=== PATIENT | female | born 1960 | race Caucasian/White ===

== ENCOUNTER → 2018-02-27 14:30 | Outpatient (CLI) | payer OTHER, SELFPAY | PROVIDERS: Family Provider Family Medicine; PCP Family Medicine; Visit Provider Obstetrics & Gynecology | DX: Z12.11 Encounter for screening for malignant neoplasm of colon (principal) | CPT/HCPCS: 82274 ==

== ENCOUNTER → 2018-05-04 23:00 | Outpatient (CLI) | payer OTHER, SELFPAY | PROVIDERS: Family Provider Family Medicine; PCP Family Medicine; Visit Provider Internal Medicine Pulmonary Disease | DX: G47.33 Obstructive sleep apnea (adult) (pediatric) (principal) | CPT/HCPCS: 95811 ==

== ENCOUNTER → 2019-01-19 23:27 | Outpatient (CLI) | payer OTHER, SELFPAY | PROVIDERS: Family Provider Family Medicine; PCP Family Medicine; Referring Provider Internal Medicine Pulmonary Disease; Visit Provider Internal Medicine Pulmonary Disease | DX: G47.33 Obstructive sleep apnea (adult) (pediatric) (principal) | CPT/HCPCS: 95811 ==

== ENCOUNTER → 2019-04-03 08:55 | Outpatient (CLI) | payer OTHER, SELFPAY ==
[2019-04-03 10:08] LABS: Absolute Lymphocyte Count 1.23 X10^3/uL (0.83-4.51); Absolute Neutrophil Count 1.9 X10^3/uL (2.0-7.7); Basophil# 0.03 X10^3/uL; Basophil% 0.9 % (0-1); Eosinophil# 0.07 X10^3/uL; Hematocrit 42.2 % (37-47); Hemoglobin 13.7 g/dL (12.0-15.0); Lymphocyte # 1.23 X10^3/ul (4.0); Lymphocyte % 35.1 % (19-41); Mean Corp Hgb Conc 32.5 g/dL (32-36); Mean Corpuscular Hgb 29.1 pg (27.0-32.0); Mean Corpuscular Volume 89.6 fL (81-99); Mean Platelet Vol. 8.8 fl (6.2-12.0); Monocyte# 0.25 X10^3/uL; Monocyte% 7.1 % (0-10); NRBC Flagged by Analyzer 0 % (0-5); Neutrophil # 1.91 X10^3/uL (2.7-7.7); Neutrophil % 54.6 % (47-70); Platelet Count 243 K/mm3 (150-450); RBC Distribution Width CV 12.4 % (11.6-14.6); RBC Distribution Width SD 40.5 fl (35.1-43.9); Red Blood Count 4.71 M/mm3 (4.2-5.4); White Blood Count 3.5 K/mm3 (4.4-11.0)
[2019-04-03 10:40] LABS: Vitamin B12 574 pg/mL (211-911); Vitamin D,25 Hydroxy 42.3 ng/mL (29.95-100.01)
[2019-04-03 10:44] LABS: ALB/GLOB Ratio 1.1 RATIO (0.9-2.4); AST(SGOT) 24 U/L (15-37); Alanine Aminotransfer ALT/SGPT 28 U/L (13-56); Albumin, Serum 3.8 g/dL (3.2-5.0); Alkaline Phosphatase 80 U/L (45-117); Anion Gap 6 (5-15); BUN 16 mg/dL (7-18); BUN/Creat Ratio 21.6 RATIO (10-20); Calcium,Total 8.9 mg/dL (8.5-10.1); Chloride 108 mmol/L (98-107); Cholesterol 182 mg/dL (200); Creatinine, Serum 0.74 mg/dL (0.55-1.02); EST Glomerular Filtration Rate 85 mL/min (>60); Est Glom Filt Rate - Afr Amer 103 mL/min (>60); Ferritin 20 ng/mL (8-252); Globulin 3.4 g/dL (2.2-4.2); Glucose 90 mg/dL (74-106); High Density Lipoprotein 68 mg/dL; Iron 105 ug/dL (50-170); Iron Binding Capacity,Total 372 ug/dL (250-450); PERCENT IRON SATURATION 28.2 % (15.0-55.0); Potassium 3.6 mmol/L (3.5-5.1); Protein, Total 7.2 g/dL (6.4-8.2); Sodium Level 145 mmol/L (136-145); Thyroid Stim Hormone (TSH) 1.39 uIU/mL (0.358-3.74); Triglycerides 50 mg/dL; Very Low Density Lipoprotein 10 mg/dL (5-40)
[2019-04-10 12:30] LABS: Vitamin B1, Thiamine 123.7 nmol/L (66.5-200.0)
== END ==
PROVIDERS: Family Provider Family Medicine; PCP Family Medicine
DX: Z98.84 Bariatric surgery status (principal); M25.571 Pain in right ankle and joints of right foot; M25.552 Pain in left hip; M25.551 Pain in right hip; E66.3 Overweight; G47.30 Sleep apnea, unspecified; I10 Essential (primary) hypertension
CPT/HCPCS: 36415; 80053; 80061; 82306; 82607; 82728; 83540; 83550; 84425; 84443; 85025

== ENCOUNTER 2020-02-01 23:08 | Emergency (ER) | payer OTHER, SELFPAY ==
[2019-10-05 12:32] VITALS: BMI 29.4
[2020-02-01 23:09] VITALS: BP 155/89; PULSE 84; RESP 18; TEMP 36.7; O2SAT 98; BMI 30.9
--- NOTE | 2020-02-01 23:19 | ED.RN ---
NO OLD EKGS IN MUSE
--- NOTE | 2020-02-01 23:25 | RAD_ITS ---
STUDY: X-RAY CHEST REASON FOR EXAM: Female, 59 years old. Chest pain to right shoulder. TECHNIQUE: Single frontal view of the chest. COMPARISON: None. FINDINGS: The lungs are clear and expanded. There is no demonstrated pleural abnormality. Normal size heart. Normal mediastinum and allison. Normal visualized pulmonary arteries. Normal visualized aortic arch and descending thoracic aorta. Normal visualized thoracic spine. Normal visualized ribs, clavicles, and shoulders. There is no demonstrated abnormality of the visualized soft tissue structures of the upper abdomen. RAD/Chest 1 View (Portable) IMPRESSION: Normal x-ray examination of the chest. Electronically Signed: Facundo Fierro MD at 0:12 EDT Tel , Service support ,
--- NOTE | 2020-02-01 23:25 | EKG12_ITS ---
Test Reason : CHEST PAIN Blood Pressure : / mmHG Vent. Rate : 083 BPM Atrial Rate : 083 BPM P-R Int : 156 ms QRS Dur : 086 ms QT Int : 364 ms P-R-T Axes : 052 044 026 degrees QTc Int : 427 ms Normal sinus rhythm Normal ECG Confirmed by FELIZ MILLER, RAFIA ([id number]), script editor TANNER MENDEZ ([id number]) on 02/05/2020 8:16:12 AM Referred By: LAURA Confirmed By:RAFIA PIPER MD
--- NOTE | 2020-02-01 23:27 | ED.RN ---
NO OLD EKGS IN MUSE
[2020-02-01 23:33] VITALS: PULSE 82; RESP 14; O2SAT 98
[2020-02-01 23:39] LABS: Absolute Lymphocyte Count 1.48 X10^3/uL (0.83-4.51); Absolute Neutrophil Count 5.3 X10^3/uL (2.0-7.7); Basophil# 0.02 X10^3/uL; Basophil% 0.3 % (0-1); Eosinophil# 0.07 X10^3/uL; Eosinophils% 0.9 % (0-5); Hematocrit 38.5 % (37-47); Hemoglobin 12.6 g/dL (12.0-15.0); Lymphocyte # 1.48 X10^3/ul (4.0); Lymphocyte % 19.8 % (19-41); Mean Corp Hgb Conc 32.7 g/dL (32-36); Mean Corpuscular Hgb 29.6 pg (27.0-32.0); Mean Corpuscular Volume 90.6 fL (81-99); Mean Platelet Vol. 8.7 fl (6.2-12.0); Monocyte# 0.64 X10^3/uL; Monocyte% 8.5 % (0-10); NRBC Flagged by Analyzer 0 % (0-5); Neutrophil # 5.27 X10^3/uL (2.7-7.7); Neutrophil % 70.4 % (47-70); Platelet Count 231 K/mm3 (150-450); RBC Distribution Width CV 12.7 % (11.6-14.6); Red Blood Count 4.25 M/mm3 (4.2-5.4); White Blood Count 7.5 K/mm3 (4.4-11.0)
[2020-02-01 23:56] LABS: Anion Gap 5 (5-15); BUN 21 mg/dL (7-18); BUN/Creat Ratio 30.9 RATIO (10-20); Calcium,Total 8.8 mg/dL (8.5-10.1); Chloride 104 mmol/L (98-107); Creatinine, Serum 0.68 mg/dL (0.55-1.02); EST Glomerular Filtration Rate 94 mL/min (>60); Est Glom Filt Rate - Afr Amer 114 mL/min (>60); Estimated Creatinine Clearance 83.39 ml/min; Glucose 99 mg/dL (74-106); Potassium 3.3 mmol/L (3.5-5.1); Sodium Level 140 mmol/L (136-145)
[2020-02-02 00:04] LABS: D-Dimer Quantitative (DVT/PE) <= 0.27 FEU/ug/m (0.27-0.49)
--- NOTE | 2020-02-02 00:20 | ED.DCSUM_ITS ---
History of Present Illness Chief Complaint: Chest Pain Informant: Patient Onset: Yesterday Narrative: 9-year-old female with past medical history of hypertension presents with concern for right chest pain. States this began last night at approximate 10 PM which is now 24 hours ago. States that it began while she was at rest. States is been intermittent since that time but only whenever she moves her right side. Denies any trauma or fall. Denies any fever, chills, cough. States that she did take aspirin last night and got nauseous. Denies any coronary artery disease. Past Medical History - Allergies and Home Meds Allergies/Adverse Reactions: Allergies No Known Allergies Allergy (Unverified 10/05/19 12:32) Primary Care Physician: Trudy Richards MD [Primary Care Provider] - Prior records reviewed: Yes Past Medical History: - - HTN Surgical History: noncontributory Lives: Spouse/ Significant Other Smoking Status: Never smoker Alcohol: None Drugs: None Review of Systems General: Denies: Chills, Fever, Sweats Eyes: Denies: Visual changes - bilaterally, Diplopia ENT: Denies: Rhinorrhea, Sore throat Cardiovascular: Reports: Chest pain. Denies: Palpitations Respiratory: Denies: Dyspnea, Cough, Dyspnea on exertion Gastrointestinal: Denies: Abdominal pain, Nausea, Vomiting, Diarrhea, Melena, Hematochezia Genitourinary: Denies: Dysuria, Hematuria, Frequency Musculoskeletal: Denies: Back pain, Extremity Pain Skin: Denies: Rash, Wounds Neurological: Denies: Headache, Weakness, Numbness Physical Exam Vital Signs/Narrative: Vital Signs Temp Pulse Resp BP Pulse Ox 02/01/20 23:33 82 14 98 02/01/20 23:09 98.1 F 84 18 155/89 H 98 Inital Vital Signs reviewed: Yes General: Well nourished, Well developed, No Acute Distress Head: Normocephalic, Atraumatic Eyes: Perrl, EOMI ENT: Moist mucous membranes, No rhinorrhea Neck: Supple, Nontender Cardiovascular: Regular rate, Regular rhythm, No murmurs Respiratory: No distress, CTA bilaterally, Chest nontender Abdomen: Soft, Nontender, Nondistended, Normal bowel sounds Back: Nontender, Normal Inspection Extremities: Nontender, No edema Skin: Normal color, No rash Neurological: Alert, Oriented x3, Cranial nerves II-XII grossly intact, Normal Strength, Normal Sensation Psychological: Normal affect, Normal Mood Diagnostic/Tx/Re-eval Chest X-Ray - ED: 1 View, Read by ED Physician, Normal Clinical Impression(s) from Imaging Studies Chest X-Ray 02/01/20 23:25 IMPRESSION: Normal x-ray examination of the chest. Electronically Signed: Facundo Fierro MD at 0:12 EDT Tel , Service support , Laboratory Data 02/01/20 02/01/20 02/01/20 23:30 23:30 23:30 WBC 7.5 RBC 4.25 Hgb 12.6 Hct 38.5 MCV 90.6 MCH 29.6 MCHC 32.7 RDW Std Deviation 41.0 RDW Coeff of Elly 12.7 Plt Count 231 MPV 8.7 Immature Gran % (Auto) 0.100 Neut % (Auto) 70.4 H Lymph % (Auto) 19.8 Clarion % (Auto) 8.5 Eos % (Auto) 0.9 Baso % (Auto) 0.3 Absolute Neuts (auto) 5.3 Absolute Lymphs (auto) 1.48 Nucleated RBC % 0 D-Dimer Quant (PE/DVT) <= 0.27 Sodium 140 Potassium 3.3 L Chloride 104 Carbon Dioxide 31.0 Anion Gap 5 BUN 21 H Creatinine 0.68 Estim Creat Clear Calc 83.39 Est GFR (MDRD) Af Amer 114 Est GFR (MDRD) Non-Af 94 BUN/Creatinine Ratio 30.9 H Glucose 99 Calcium 8.8 Troponin I < 0.015 - Rhythm Strip Rhythm Strip: Sinus Rhythm Rate: 83 Ectopy: None - EKG Initial EKG Interpretation: Sinus Rhythm - Normal sinus rhythm at 83 bpm. MA interval of 156 ms. QTC of 427 ms. No evidence of ST elevation or depression at this time. - Medical Decision Making Patient appears well nontoxic. Vital signs within normal limits. Atypical chest pain. Chest x-ray negative. EKG nonischemic with a negative troponin as well as d-dimer. Given the patient's pain is atypical in nature and worse with movement. Single troponin given is been over the course the past 24 hours should effectively rule her out for ACS. Patient is low risk with only hypertension as a risk factor as well as an age of 59. Patient will be asked to follow-up with her primary care provider and return for any new or worsening symptoms. ED Disposition - Plan for ED Patient: Disposition: Home or Assisted Living Diagnosis: Chest pain Instructions: ED Chest Pain Atypical Unkn Cause Referrals: Trudy Richards MD [Primary Care Provider] -
[2020-02-02] MEDS: Ketorolac 15 MG/ML Vial IV (00:44)
[2020-02-02 01:00] VITALS: BP 122/71; PULSE 76; RESP 16; O2SAT 98
== END 2020-02-02 01:05 | disposition home or self-care (01) ==
PROVIDERS: Emergency Provider Emergency Medicine; PCP Internal Medicine
DX: R07.89 Other chest pain (principal); I10 Essential (primary) hypertension
CPT/HCPCS: 71045; 80048; 84484; 85025; 85379; 93005; 96374; 99285; A4216

== ENCOUNTER → 2020-07-23 09:10 | Outpatient (CLI) | payer OTHER, SELFPAY ==
[2020-07-23 08:37] VITALS: BMI 30.3
[2020-07-23 09:12] LABS: Mucous, Urine 0 SEEN /hpf (<or=2+)
[2020-07-23 12:21] LABS: Color, Urine Yellow (Yellow); Glucose, Dipstick Normal (Normal); Ketone-Dipstick Negative (Negative); Leukocyte Esterase-Dipstick 100 /ul (Negative); Nitrite-Dipstick Negative (Negative); Occult Blood-Urine 250 /ul (Negative); Protein-Dipstick 15 mg/dl (Negative); Specific Gravity, Urine 1.015 (1.002-1.030); Urine Bilirubin Dipstick Negative (Negative); Urine Clarity Cloudy (Clear); Urine Urobilinogen 1 mg/dl (Normal)
[2020-07-23 12:30] LABS: Bacteria RARE /hpf (None Seen); Red Blood Cells-Urine 50-100 SEEN /hpf (0-5); Squamous Epithelial Cells - UA 0-5 SEEN /hpf (5-10); White Blood Cells 0-5 SEEN /hpf (0-5)
[2020-07-23 12:41] LABS: Vitamin B12 395 pg/mL (211-911); Vitamin D,25 Hydroxy 52.8 ng/mL
[2020-07-23 12:51] LABS: Thyroid Stim Hormone (TSH) 1.72 uIU/mL (0.358-3.74)
== END ==
PROVIDERS: Internal Medicine; PCP Internal Medicine; Referring Provider Nurse Practitioner Family; Visit Provider Nurse Practitioner Family
DX: I10 Essential (primary) hypertension (principal); E56.9 Vitamin deficiency, unspecified; R31.9 Hematuria, unspecified
CPT/HCPCS: 36415; 81001; 82306; 82607; 84443

== ENCOUNTER → 2020-07-24 12:48 | Outpatient (CLI) | payer OTHER, SELFPAY ==
[2020-07-23 08:37] VITALS: BMI 30.3
--- NOTE | 2020-07-24 12:51 | US_ITS ---
STUDY: RENAL ULTRASOUND - COMPLETE REASON FOR EXAM: Female, 59 years old. INTERMITTENT HEMATURIA TECHNIQUE: Ultrasound evaluation of the kidneys was performed with real-time and static sorenson-scale imaging. COMPARISON: None. FINDINGS: RIGHT KIDNEY: Normal location of the right kidney, which is normal in size. The right kidney measures 9.7 cm. There is a normal cortex of the right kidney. The renal cortex measures 1.3 cm. There is no right renal mass or cyst. There are no right renal calculi. There is no right hydronephrosis. DISTAL RIGHT URETER: There is non-visualization of the distal right ureter. There is no demonstrated right ureterovesical junction calculus. There is a visualized right ureteral jet. LEFT KIDNEY: Normal location of the left kidney, which is normal in size. The left kidney measures 10.0 cm. There is a normal cortex of the left kidney. The renal cortex measures 1.3 cm. There is no left renal mass or cyst. There are no left renal calculi. There is no left hydronephrosis. DISTAL LEFT URETER: There is non-visualization of the distal left ureter. There is no demonstrated left ureterovesical junction calculus. There is a visualized left ureteral jet. BLADDER: The distended urinary bladder has a volume of 121 ml. The empty urinary bladder has a volume of ml. There is a normal wall thickness of the distended urinary bladder. There is no demonstrated mass within the urinary bladder. There are no demonstrated bladder calculi. US/Kidney and Bladder IMPRESSION: Normal ultrasound of the kidneys and urinary bladder. Electronically Signed: Hang Wei MD at 15:12 EST Tel , Service support ,
== END ==
PROVIDERS: PCP Internal Medicine; Referring Provider Internal Medicine; Visit Provider Internal Medicine
DX: R31.9 Hematuria, unspecified (principal)
CPT/HCPCS: 76770

== ENCOUNTER → 2020-08-14 06:09 | Outpatient (CLI) | payer OTHER, SELFPAY ==
[2020-07-23 08:37] VITALS: BMI 30.3
[2020-08-14 06:13] LABS: Bacteria 0 SEEN /hpf (None Seen); Mucous, Urine 0 SEEN /hpf (<or=2+)
[2020-08-14 07:53] LABS: Color, Urine Yellow (Yellow); Glucose, Dipstick Normal (Normal); Ketone-Dipstick Negative (Negative); Leukocyte Esterase-Dipstick 25 /ul (Negative); Nitrite-Dipstick Negative (Negative); Occult Blood-Urine 25 /ul (Negative); Protein-Dipstick 15 mg/dl (Negative); Specific Gravity, Urine 1.025 (1.002-1.030); Urine Bilirubin Dipstick Negative (Negative); Urine Clarity Sl. Cloudy (Clear); Urine Urobilinogen Normal (Normal)
[2020-08-14 08:34] LABS: Red Blood Cells-Urine 25-50 SEEN /hpf (0-5)
[2020-08-14 08:35] LABS: Calcium Oxalate Crystals Ur 1+ /hpf (<or=2+); Squamous Epithelial Cells - UA 0-5 SEEN /hpf (5-10); White Blood Cells 0-5 SEEN /hpf (0-5)
[2020-08-14 12:40] LABS: ALB/GLOB Ratio 1.1 RATIO (0.9-2.4); AST(SGOT) 13 U/L (15-37); Alanine Aminotransfer ALT/SGPT 18 U/L (13-56); Albumin, Serum 3.6 g/dL (3.2-5.0); Alkaline Phosphatase 72 U/L (45-117); Anion Gap 4 (5-15); BUN 13 mg/dL (7-18); BUN/Creat Ratio 15.5 RATIO (10-20); Calcium,Total 8.8 mg/dL (8.5-10.1); Chloride 109 mmol/L (98-107); Creatinine, Serum 0.84 mg/dL (0.55-1.02); EST Glomerular Filtration Rate 74 mL/min (>60); Erythrocyte Sedimentation Rate 5 mm/hr (0-30); Est Glom Filt Rate - Afr Amer 89 mL/min (>60); Globulin 3.2 g/dL (2.2-4.2); Glucose 88 mg/dL (74-106); Potassium 3.2 mmol/L (3.5-5.1); Protein, Total 6.8 g/dL (6.4-8.2); Sodium Level 141 mmol/L (136-145)
[2020-08-14 12:47] LABS: Absolute Lymphocyte Count 1.39 X10^3/uL (0.83-4.51); Basophil# 0.02 X10^3/uL; Basophil% 0.5 % (0-1); Eosinophil# 0.09 X10^3/uL; Eosinophils% 2.4 % (0-5); Hematocrit 37.2 % (37-47); Hemoglobin 12.5 g/dL (12.0-15.0); Lymphocyte # 1.39 X10^3/ul (4.0); Lymphocyte % 37.3 % (19-41); Mean Corp Hgb Conc 33.6 g/dL (32-36); Mean Corpuscular Hgb 29.5 pg (27.0-32.0); Mean Corpuscular Volume 87.7 fL (81-99); Mean Platelet Vol. 9.2 fl (6.2-12.0); Monocyte# 0.24 X10^3/uL; Monocyte% 6.4 % (0-10); NRBC Flagged by Analyzer 0 % (0-5); Neutrophil # 1.98 X10^3/uL (2.7-7.7); Neutrophil % 53.1 % (47-70); Platelet Count 337 K/mm3 (150-450); RBC Distribution Width CV 12.3 % (11.6-14.6); RBC Distribution Width SD 39.4 fl (35.1-43.9); Red Blood Count 4.24 M/mm3 (4.2-5.4); White Blood Count 3.7 K/mm3 (4.4-11.0)
== END ==
PROVIDERS: PCP Internal Medicine; Referring Provider Internal Medicine; Visit Provider Internal Medicine
DX: R31.9 Hematuria, unspecified (principal)
CPT/HCPCS: 36415; 80053; 81001; 85025; 85652

== ENCOUNTER → 2020-08-15 14:22 | Outpatient (CLI) | payer OTHER, SELFPAY ==
[2020-08-14 08:17] VITALS: BMI 29.8
--- NOTE | 2020-08-15 14:23 | CT_ITS ---
STUDY: CT ABDOMEN AND PELVIS WITH CONTRAST REASON FOR EXAM: Female, 59 years old. ABD PAIN/HEMATURIA, RECURRENT. Delays included. Hx of gastric sleeve and HTN-rx controlled. RADIATION DOSAGE (If Supplied By Facility): CTDIvol = ( 13.25 ) mGy, DLP = ( 1509.45 ) mGycm TECHNIQUE: Transaxial images were obtained from the dome of the diaphragm to the symphysis pubis with oral contrast. Oral and amp; IV READII-CAT and amp; 100ML ISOVUE 300 was administered. Sagittal and coronal images were reconstructed. Individualized dose optimization techniques were used for this CT. COMPARISON: None. FINDINGS: The visualized lung bases are unremarkable. The visualized portions of the heart are within normal limits. There is a 1.1 cm cyst in the dome of the right lobe of the liver. Normal gallbladder and extrahepatic biliary system. Normal spleen. Normal pancreas. Normal bilateral adrenal glands. Normal right kidney. Normal left kidney. The patient is status post subtotal gastrectomy. Small hiatal hernia. Normal small intestine. There are scattered colonic diverticula consistent with diverticulosis. The appendix is visualized and appears normal. Normal abdominal aorta. Normal inferior vena cava. Normal retroperitoneum. Normal urinary bladder. Normal abdominal wall. There are mild degenerative changes of the visualized lumbar spine. CT/Abdomen/Pelvis WITH Contrast IMPRESSION: 1.1 cm cyst in the dome of the liver. Status post subtotal gastrectomy. Electronically Signed: Betito Garnica MD at 15:09 EST , Service support ,
== END ==
PROVIDERS: PCP Internal Medicine; Referring Provider Internal Medicine; Visit Provider Internal Medicine
DX: N02.9 Recurrent and persistent hematuria with unspecified morphologic changes (principal); R10.9 Unspecified abdominal pain
CPT/HCPCS: 74177; Q9967

== ENCOUNTER → 2020-08-19 15:35 | Outpatient (CLI) | payer OTHER, SELFPAY ==
[2020-08-14 08:17] VITALS: BMI 29.8
--- NOTE | 2020-08-19 | CYSPIN_PTH ---
PATIENT: CAITLIN MITCHELL LOC: [facility] U#:[id number] AGE/SX: 64/F ROOM: RE08/19/[address]: Dr. Saima Golden MD : 1960 BED: DIS: SPEC #: [id number] RECD: 08/20/20 07:45 STATUS: JACKSON REDarrel #: [id number] DEEPAK: 08/19/20 00:[address]: Saima Golden DEPT: CYTOLOGY RECD BY: Ernst Mccord ENTERED: 08/20/20 07:45 SP TYPE: CYSPIN FL OTHR DR: Dr. Trudy Richards MD Tissues: Urine Procedures: Pap Stain (control) Special Stain Group II Cytospin Fluid HEADER OPERATION: Not noted PRE-OP DIAGNOSIS: Hematuria TISSUE SUBMITTED: Urine for cytology DIAGNOSIS CYTOLOGY Urine for cytology (cytospin): Negative for malignant cells. AM:owen 08/21/2020 CYTOLOGY STUDY Slides are reviewed. CYTOLOGY GROSS Received is 30 ml of yellow cloudy fluid labeled with the patient's name and and designated per the requisition as urine. Submitted for cytology preparation. / rg 08/20/2020 TC:5 CPT: 21174
[2020-08-19 16:09] LABS: Cytology, Body Fluid / CSF SEE PATHOLOGY REPORT
== END ==
PROVIDERS: PCP Internal Medicine; Referring Provider Urology; Visit Provider Urology
DX: R31.0 Gross hematuria (principal)
CPT/HCPCS: 88108; 88313

== ENCOUNTER → 2021-04-11 11:17 | Outpatient (CLI) | payer OTHER, SELFPAY ==
--- NOTE | 2021-04-11 11:20 | BI_ITS ---
MAMMOGRAPHY - BILATERAL SCREENING REASON FOR EXAM: Female, 60 years old. Routine annual screening examination. PERTINENT HISTORY: Non-contributory. TECHNIQUE: Digital bilateral breast florence (3D mammographic acquisition) in the CC and MLO projections. 2-D mediolateral oblique (MLO) and craniocaudad (CC) views of both breasts were obtained. CAD: Full Field Digital Mammography with Computer Added Detection was performed. COMPARISON: Comparison is made with prior examination 03/12/2008. FINDINGS: Breast Composition: There are scattered areas of fibroglandular density. There are no dominant masses or suspicious calcifications. No other significant abnormalities are identified. There has been no significant change since the prior study. BI/SCRN MAMM (CAD)W/FLORENCE BILAT IMPRESSION: Stable bilateral screening mammogram. Yearly follow-up mammogram recommended. (A) ASSESSMENT CATEGORY: BIRADS Category 1: Negative. A letter regarding these results will be sent to the patient by the facility within 30 days. Approximately 10% of breast cancers are not detected by mammography. A normal mammogram should not delay biopsy of a clinically suspicious abnormality. [id number] Electronically Signed: Betito Garnica MD at 12:21 EDT , Service support ,
== END ==
PROVIDERS: PCP Internal Medicine; Referring Provider Internal Medicine; Visit Provider Internal Medicine
DX: Z12.31 Encounter for screening mammogram for malignant neoplasm of breast (principal)
CPT/HCPCS: 77063; 77067

== ENCOUNTER → 2021-05-02 10:59 | Outpatient (CLI) | payer OTHER, SELFPAY ==
[2021-05-02 12:36] LABS: Hemoglobin A1c 5.1 % (3.8-5.6)
[2021-05-02 12:54] LABS: Vitamin D,25 Hydroxy 53.3 ng/mL
== END ==
PROVIDERS: PCP Internal Medicine; Referring Provider Internal Medicine; Visit Provider Internal Medicine
DX: Z13.220 Encounter for screening for lipoid disorders (principal); Z13.1 Encounter for screening for diabetes mellitus; I10 Essential (primary) hypertension; G47.33 Obstructive sleep apnea (adult) (pediatric); E55.9 Vitamin D deficiency, unspecified
CPT/HCPCS: 36415; 82306; 83036

== ENCOUNTER 2021-11-07 15:32 | Outpatient (CLI) | payer OTHER, SELFPAY ==
--- NOTE | 2021-11-07 15:45 | RAD_ITS ---
EXAM: XR RIGHT FOOT COMPLETE, 3 OR MORE VIEWS CLINICAL INDICATION: Heel pain TECHNIQUE: Frontal, lateral and oblique views of the right foot. This report was created using [employer] report generation technology. COMPARISON: None. 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 There is an enthesophyte involving the posterior superior calcaneus at the site of insertion of the Achilles tendon. No acute fracture. No subluxation. Normal alignment. Preservation of the joint space. No sclerotic or destructive changes observed. SOFT TISSUES: Unremarkable. No soft tissue swelling or gas. No radiopaque foreign body. 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 Electronically Signed: Raymond Rosen MD at 16:29 EDT Reading Location ID and State: [facility] / [place] , Service support ,
== END 2021-11-07 23:59 | disposition home or self-care (01) ==
LOC: RAD 15:33
PROVIDERS: PCP Internal Medicine; Visit Provider Internal Medicine
DX: M92.61 Juvenile osteochondrosis of tarsus, right ankle (principal)
CPT/HCPCS: 73630

== ENCOUNTER 2022-08-28 06:22 | Day surgery (SDC) | payer BC, SELFPAY ==
[2022-08-28] VITALS (10 sets, daily range): BP systolic 85–147; BP diastolic 54–83; PULSE 60–84; RESP 15–16; TEMP 36.4–36.9; O2SAT 90–100; BMI 31.6
[2022-08-28] MEDS: Lactated Ringers 1,000 ML 15 ML IV (07:08)
--- NOTE | 2022-08-28 07:51 | PCM.HP.BLA ---
History and Physical Date of Admission: 08/28/22 Visit Reasons:?POSITIVE COLOGUARD Chief Complaint: Positive Cologuard Fruit Packer Face And Fill Required: No Is patient in pain?: No Allergies No Known Allergies Allergy (Verified 07/14/22 13:33) Medications cholodal silver? PO 07/23/20 [History Confirmed 07/14/22] elderberry fruit 200 mg capsule mg PO 07/23/20 [History Confirmed 07/14/22] cholecalciferol (vitamin D3) 125 mcg (5,000 unit) capsule 125 mcg PO .QOD 03/06/21 [History Confirmed 07/14/22] amlodipine 5 mg tablet 5 mg PO DAILY #90 tabs 05/13/22 [Rx Confirmed 07/14/22] PFSH Medical History?(Updated 07/14/22 @ 13:31 by Anaya Devi) Hypertension Positive colorectal cancer screening using Cologuard test Sleep apnea Surgical History? History of weight loss surgery Family History? Mother Depression FibromyalgiaFather HypertensionGrandfather Cancer Social History? Smoking Status:? Never smoker alcohol intake:? never substance use type:? does not use caffeine:? No what type of physical activity do you participate in:? other frequency:? 3-4 times per week seatbelt use:? always do you feel safe at home:? Yes additional social history:? Radha French HPI HPI HPI: 61-year-old female is being referred by Dr. Jazmin Jewell because of a history of a positive Cologuard analysis.? A written copy of my surgical consult recommendations will return to him.? She is not on any anticoagulants.? She enjoys good health.? She denies bright red blood per rectum or melena.? She denies any indigestion.? She does not take any antacids. She states that neither of her parents have ever had a colonoscopy.? She states that she has no known family history of colon cancer. ROS General General: No weight change, appetite, fatigue, colon cancer, breast cancer or weakness HEENT HEENT: No difficulty swallowing, eye injury, eye surgery, swollen glands or hoarseness Endo Endocrine: No thyroid disease, diabetes mellitus, thyroid cancer, Hair loss, heat intolerance or cold intolerance Skin Skin: No rash or changing moles Breast Breast: No left breast lump, right breast lump, nipple discharge, breast pain, abnormal mammogram, abnormal US or breast enlargement Musc Musculoskeletal: No back problems, arthritis, rheumatoid arthritis, gout or joint pain Cardio Cardiovascular: Yes high blood pressure; No murmur, pacemaker, heart disease, atrial fibrillation, heart attack, heart stent, palpitations, shortness of breat with exertion or chest pain Psych Psychiatric: No depression, anxiety or hearing voices Resp Respiratory: No shortness of breath, Yes sleep apnea, No cough, No COPD, No asthma, No emphysema and No wheezing Gastro Gastrointestinal: No abdominal pain, No nausea or vomiting, No diarrhea, No constipation, No blood in stool, No acid reflux, No hemorrhoids, No ulcers, No gallbladder problem and No black,tarry stools Sarabjit Hematologic: No blood thinners, No blood disorders, No bleeding, No anemia and No blood clots Neuro Neurologic: No system reviewed and no additional complaints, except as documented, No as per HPI, No abnormal gait, No abnormal hearing, No abnormal movements, No abnormal speech, No behavioral changes, No burning sensations, No confusion, No convulsions, No disequilibrium, No dizziness, No localized weakness, No frequent falls, No headache(s), No lack of coordination, No loss of vision, No memory loss, No numbness, No other visual disturbances, No radicular pain, No restless legs, No sensory deficit, No syncope, No tingling, No tremor(s), No weakness and No other Exam Const General: cooperative, healthy appearing, comfortable and no acute distress [facility] Head: normal to inspection Eyes General: appearance normal, both eyes and all related structures Neck Neck: normal visual inspection Chest Chest palpation & inspection: normal inspection of the chest Resp Effort & Inspection: normal respiratory effort Auscultation: clear to auscultation bilaterally Cardio Rate: regular rate Rhythm: regular rhythm GI Inspection: normal to inspection Palpation: soft and no hepatosplenomegaly Auscultation: normal bowel sounds Musc Cervical Spine: normal cervical lordosis Skin General: no rashes or lesions noted Neuro General: patient alert, patient awake and patient oriented x3 Extrem General: no calf tenderness Psych Appearance: grossly normal Assessment and Plan Assessment and Plan (1) Positive colorectal cancer screening using Cologuard test: ?Status:?Acute ?Plan: The source of the patient's positive Cologuard is unclear.? I recommend to her a esophagogastroduodenoscopy with possible biopsy and colonoscopy with possible biopsy or polypectomy as indicated.? She is aware of the technique, benefit, risk, alternatives.? She does have a degree of anxiety which is prevented her from pursuing this type of procedure prior.? With that in mind we will utilize monitored anesthesia care.? I very much appreciate the kind opportunity of assisting with her surgical care. Copy: Dr. Jazmin Cordova M.D., F.A.C.S I have examined the patient and the H&P has been reviewed. There are no clinical changes since date of exam. Kade Cordova M.D., F.A.C.S.
--- NOTE | 2022-08-28 08:00 | IMM_PTH ---
PATIENT: CAITLIN MITCHELL LOC: EN U#:[id number] AGE/SX: 61/F ROOM: RE08/28/[address]: Dr. Kade Cordova MD : 1960 BED: DIS: 08/28/2022 SPEC #: [id number] RECD: 08/28/22 13:41 STATUS: JACKSON REQ #: [id number] DEEPAK: 08/28/22 08:[address]: Kade Cordova DEPT: IMMUNOHISTOCHEMISTRY RECD BY: Monika Paul ENTERED: 08/28/22 13:41 SP TYPE: IMMUNO OTHR DR: Dr. Jazmin Jewell MD Tissues: B - Stomach, NOS Procedures: H Pylori (initial) PHYSICIAN & INSTITUTION [place] [id number] SPECIMEN INFORMATION: Tissue Source: B ? Antrum biopsy Clinical Info: Positive Cologuard test Specimen Number: [id number] CPT code: 39477 METHODOLOGY: Deparaffinized sections of prefer/formalin-fixed tissue or PAP/DQ stained slides are incubated with monoclonal/polyclonal antibodies/oligonucleotide probes. Localization is made via biotin free immunoperoxidase method. Appropriate controls are performed and reacted as expected. Results on target cell population are indicated in the following table: RESULTS: ANTIBODY / CLONE RESULT Block B H Pylori (polyclonal) negative These tests were developed and their performance characteristics determined by [facility]. They may not have been cleared or approved by the U.S. Food and Drug Administration. The FDA has determined that such clearance or approval is not necessary. The above immunohistochemical/dualISH markers are ordered and reviewed by the Pathologist. INTERPRETATION: B. Antrum, biopsy: Negative for Helicobacter pylori organisms. AM:owen 08/31/2022
--- NOTE | 2022-08-28 08:00 | COLBX_PTH ---
PATIENT: CAITLIN MITCHELL LOC: EN U#:[id number] AGE/SX: 61/F ROOM: RE08/28/[address]: Dr. Kade Cordova MD : 1960 BED: DIS: 08/28/2022 SPEC #: [id number] RECD: 08/28/22 10:56 STATUS: JACKSON DESAI #: [id number] DEEPAK: 08/28/22 08:[address]: Kade Cordova DEPT: SURGICAL PATHOLOGY RECD BY: Nelda Gillette ENTERED: 08/28/22 13:24 SP TYPE: COLON BX OTHR DR: Dr. Jazmin Jewell MD Tissues: A - Duodenum, NOS B - Gastric mucous membrane C - Esophagus, NOS Procedures: Special Stain Group II Surgery Specimen Level IV Alcian Blue/PAS (control) HEADER OPERATION: Colonoscopy, EGD ([facility] [place]) PRE-OP DIAGNOSIS: Positive Cologuard TISSUE SUBMITTED: A ? Duodenum biopsy, B ? Antrum for H. pylori and path, C ? Distal esophagus biopsy MICROSCOPIC DIAGNOSIS A. Duodenum, biopsy: No pathologic change. B. Gastric antrum, biopsy: Mild chronic inflammation. See comment. C. Distal esophagus, biopsy: Gastroesophageal junctional mucosa with mild chronic inflammation. No evidence of goblet cell metaplasia. See comment. AM:owen 08/31/2022 COMMENT B. The results of immunohistochemistry for Helicobacter pylori will be reported separately ([id number]). C. Alcian blue/PAS stain with matched control supports the above diagnosis. MICROSCOPIC DESCRIPTION Slides are reviewed. GROSS DESCRIPTION A - Received in fixative is one container labeled with the patient's name and designated duodenum biopsy. The specimen consists of one irregular fragment of light hamilton soft tissue that measures 0.3 x 0.3 x 0.1 cm. The specimen is totally submitted in one cassette. B - Received in fixative is one container labeled with the patient's name and designated antrum biopsy. The specimen consists of one irregular fragment of light hamilton soft tissue that measures 0.3 x 0.3 x 0.1 cm. The specimen is totally submitted in one cassette. C - Received in fixative is one container labeled with the patient's name and designated distal esophagus biopsy. The specimen consists of multiple irregular fragments of light hamilton soft tissue that in aggregate measure 1 x 0.7 x 0.1 cm. The specimen is totally submitted in one cassette. / SJ:rg 08/28/2022 TC:3 CPT: 64068 x3, 77269
--- NOTE | 2022-08-28 08:41 | OP.EGD_ITS ---
Patient Name: Ny Alexander Procedure Date: 08/28/2022 8:01 AM Date of : 1960 Age: 61 Procedure: Upper GI endoscopy Indications: Cologuard positive Providers: Kade Cordova MD Referring MD: Kade Cordova MD Medicines: See the Anesthesia note for documentation of the administered medications Complications: No immediate complications. Procedure: Pre-Anesthesia Assessment: - Prior to the procedure, a History and Physical was performed, and patient medications and allergies were reviewed. The patient's tolerance of previous anesthesia was also reviewed. The risks and benefits of the procedure and the sedation options and risks were discussed with the patient. All questions were answered, and informed consent was obtained. Prior Anticoagulants: The patient has taken no previous anticoagulant or antiplatelet agents. ASA Grade Assessment: II - A patient with mild systemic disease. After reviewing the risks and benefits, the patient was deemed in satisfactory condition to undergo the procedure. After obtaining informed consent, the endoscope was passed under direct vision. Throughout the procedure, the patient's blood pressure, pulse, and oxygen saturations were monitored continuously. The colonoscope was introduced through the mouth, and advanced to the second part of duodenum. The upper GI endoscopy was accomplished without difficulty. The patient tolerated the procedure well. Scope In: 8:08:04 AM Scope Out: 8:16:09 AM Total Procedure Duration Time 0 hours 8 minutes 5 seconds Findings: LA Grade A (one or more mucosal breaks less than 5 mm, not extending between tops of 2 mucosal folds) esophagitis with no bleeding was found 38 cm from the incisors. Biopsies were taken with a cold forceps for histology. Evidence of a sleeve gastrectomy was found in the stomach. This was characterized by erythema. Biopsies were taken with a cold forceps for histology. The examined duodenum was normal. Biopsies were taken with a cold forceps for histology. Impression: - LA Grade A reflux esophagitis. Biopsied. 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 Biopsied. - Normal examined duodenum. Biopsied. Recommendation: - Discharge patient to home. - Resume previous diet. - Continue present medications. - Use Prilosec (omeprazole) 20 mg PO daily. Esophagitis may be the etiology to the abnormal Cologuard testing Procedure Code(s): --- Professional --- 92027, Esophagogastroduodenoscopy, flexible, transoral; with biopsy, single or multiple Diagnosis Code(s): --- Professional --- K21.0, Gastro-esophageal reflux disease with esophagitis Z98.84, Bariatric surgery status CPT copyright 2017 [employer]. All rights reserved. The codes documented in this report are preliminary and upon porcelain mixer review may be revised to meet current compliance requirements. Kade Cordova MD 08/28/2022 8:41:04 AM This report has been signed electronically. Number of Addenda: 0 Note Initiated On: 08/28/2022 8:01 AM
--- NOTE | 2022-08-28 08:41 | OP.CCLET_ITS ---
08/28/2022 Jazmin Jewell [facility] [address] [place] [address] Re : Upper GI endoscopy procedure for Ny Alexander Dear Dr. Jewell This procedure was performed on Sunday, August 28, 2022. My impressions and recommendations are as follows: Impressions : - LA Grade A reflux esophagitis. Biopsied. 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 Biopsied. - Normal examined duodenum. Biopsied. Recommendations : - Discharge patient to home. - Resume previous diet. - Continue present medications. - Use Prilosec (omeprazole) 20 mg PO daily. Esophagitis may be the etiology to the abnormal Cologuard testing My findings are described in the full procedure note, which is enclosed. If I can be of further assistance, please feel free to contact me at Doctor phone number(s): Work: . Sincerely, Kade Cordova MD 08/28/2022 8:41:04 AM This report has been signed electronically.
--- NOTE | 2022-08-28 08:48 | OP.COLON_ITS ---
Patient Name: Ny Alexander Procedure Date: 08/28/2022 8:16 AM Date of : 1960 Age: 61 Procedure: Colonoscopy Indications: Cologuard positive Providers: Kade Cordova MD Referring MD: Kade Cordova MD Medicines: See the Anesthesia note for documentation of the administered medications Patient Profile: Last Colonoscopy: none. The patient's first colonoscopy is today. Complications: No immediate complications. Procedure: Pre-Anesthesia Assessment: - Prior to the procedure, a History and Physical was performed, and patient medications and allergies were reviewed. The patient's tolerance of previous anesthesia was also reviewed. The risks and benefits of the procedure and the sedation options and risks were discussed with the patient. All questions were answered, and informed consent was obtained. Prior Anticoagulants: The patient has taken no previous anticoagulant or antiplatelet agents. ASA Grade Assessment: II - A patient with mild systemic disease. After reviewing the risks and benefits, the patient was deemed in satisfactory condition to undergo the procedure. After I obtained informed consent, the scope was passed under direct vision. Throughout the procedure, the patient's blood pressure, pulse, and oxygen saturations were monitored continuously. The colonoscope was introduced through the anus and advanced to the cecum, identified by appendiceal orifice and ileocecal valve. The colonoscopy was performed without difficulty. The patient tolerated the procedure well. The quality of the bowel preparation was good. The ileocecal valve and the appendiceal orifice were photographed. Scope In: 8:18:27 AM Scope Withdrawal Time 0 hours 7 minutes 50 seconds Scope Out: 8:34:36 AM Total Procedure Duration Time 0 hours 16 minutes 9 seconds Findings: The digital rectal exam findings include non-thrombosed external hemorrhoids, non-thrombosed internal hemorrhoids and internal hemorrhoids that prolapse with straining, but spontaneously regress to the resting position (Grade II). Pertinent negatives include Abnormal sphincter tone. Multiple diverticula were found in the sigmoid colon. The colon (entire examined portion) was moderately tortuous. Advancing the scope required applying abdominal pressure. Impression: - Non-thrombosed external hemorrhoids, non-thrombosed internal hemorrhoids and internal hemorrhoids that prolapse with straining, but spontaneously regress to the resting position (Grade II) found on digital rectal exam. - Diverticulosis in the sigmoid colon. - Tortuous colon. - No specimens collected. Recommendation: - Discharge patient to home. - Resume previous diet. - Continue present medications. - Repeat colonoscopy in 10 years for screening purposes. Procedure Code(s): --- Professional --- 03301, Colonoscopy, flexible; diagnostic, including collection of specimen(s) by brushing or washing, when performed (separate procedure) Diagnosis Code(s): --- Professional --- K64.1, Second degree hemorrhoids K64.4, Residual hemorrhoidal skin tags K57.30, Diverticulosis of large intestine without perforation or abscess without bleeding Q43.8, Other specified congenital malformations of intestine CPT copyright 2017 [employer]. All rights reserved. The codes documented in this report are preliminary and upon pre coder review may be revised to meet current compliance requirements. Kade Cordova MD 08/28/2022 8:48:19 AM This report has been signed electronically. Number of Addenda: 0 Note Initiated On: 08/28/2022 8:16 AM
--- NOTE | 2022-08-28 08:49 | OP.CCLET_ITS ---
08/28/2022 Jazmin Jewell [facility] [address] [place] [address] Re : Colonoscopy procedure for Ny Alexander Dear Dr. Jewell This procedure was performed on Sunday, August 28, 2022. My impressions and recommendations are as follows: Impressions : - Non-thrombosed external hemorrhoids, non-thrombosed internal hemorrhoids and internal hemorrhoids that prolapse with straining, but spontaneously regress to the resting position (Grade II) found on digital rectal exam. - Diverticulosis in the sigmoid colon. - Tortuous colon. - No specimens collected. Recommendations : - Discharge patient to home. - Resume previous diet. - Continue present medications. - Repeat colonoscopy in 10 years for screening purposes. My findings are described in the full procedure note, which is enclosed. If I can be of further assistance, please feel free to contact me at Doctor phone number(s): Work: . Sincerely, Kade Cordova MD 08/28/2022 8:48:19 AM This report has been signed electronically.
== END 2022-08-28 10:28 | disposition home or self-care (01) ==
LOC: EN 06:23 → AC 06:26
PROVIDERS: PCP Internal Medicine; Referring Provider Internal Medicine; Visit Provider Surgery
PROC: 0DJD8ZZ Inspection of Lower Intestinal Tract, Via Natural or Artificial Opening Endoscopic (ICD-10-PCS; CPT 45378; principal; 2022-08-28 07:55)
DX: K31.89 Other diseases of stomach and duodenum (principal); K21.00 Gastro-esophageal reflux disease with esophagitis, without bleeding; K64.1 Second degree hemorrhoids; K64.4 Residual hemorrhoidal skin tags; K57.30 Diverticulosis of large intestine without perforation or abscess without bleeding; I10 Essential (primary) hypertension; G47.33 Obstructive sleep apnea (adult) (pediatric); Z79.899 Other long term (current) drug therapy; Z98.84 Bariatric surgery status
CPT/HCPCS: 45378; 43239; 88305; 88313; 88342; J7120; J2405

== ENCOUNTER → 2023-03-18 | Outpatient (CLI) | payer BC, SELFPAY ==
[2023-03-18 10:11] LABS: Absolute Lymphocyte Count 1.07 X10^3/uL (0.83-4.51); Absolute Neutrophil Count 1.5 X10^3/uL (2.0-7.7); Basophil# 0.03 X10^3/uL; Eosinophil# 0.08 X10^3/uL; Eosinophils% 2.7 % (0-5); Hematocrit 40.7 % (37-47); Hemoglobin 13.6 g/dL (12.0-15.0); Lymphocyte # 1.07 X10^3/ul (0.83-4.51); Lymphocyte % 36.3 % (19-41); Mean Corp Hgb Conc 33.4 g/dL (32-36); Mean Corpuscular Hgb 29.8 pg (27.0-32.0); Mean Corpuscular Volume 89.1 fL (81-99); Mean Platelet Vol. 8.8 fl (6.2-12.0); Monocyte# 0.23 X10^3/uL; Monocyte% 7.8 % (0-10); NRBC Flagged by Analyzer 0 % (0-5); Neutrophil # 1.53 X10^3/uL (2.7-7.7); Neutrophil % 51.9 % (47-70); Platelet Count 270 K/mm3 (150-450); RBC Distribution Width CV 12.4 % (11.6-14.6); RBC Distribution Width SD 40.5 fl (35.1-43.9); Red Blood Count 4.57 M/mm3 (4.2-5.4)
[2023-03-18 11:02] LABS: Vitamin D,25 Hydroxy 61.9 ng/mL
[2023-03-18 11:13] LABS: ALB/GLOB Ratio 1.2 RATIO (0.9-2.4); AST(SGOT) 15 U/L (15-37); Alanine Aminotransfer ALT/SGPT 18 U/L (13-56); Albumin, Serum 3.8 g/dL (3.2-5.0); Alkaline Phosphatase 70 U/L (45-117); Anion Gap 5 (5-15); BUN 15 mg/dL (7-18); BUN/Creat Ratio 19.2 RATIO (10-20); Calcium,Total 8.8 mg/dL (8.5-10.1); Chloride 110 mmol/L (98-107); Cholesterol 180 mg/dL (200); Creatinine, Serum 0.78 mg/dL (0.55-1.02); EST Glomerular Filtration Rate 79 mL/min (>60); Est Glom Filt Rate - Afr Amer 96 mL/min (>60); Globulin 3.2 g/dL (2.2-4.2); Glucose 95 mg/dL (74-106); High Density Lipoprotein 65 mg/dL; Potassium 3.5 mmol/L (3.5-5.1); Sodium Level 144 mmol/L (136-145); Thyroid Stim Hormone (TSH) 1.05 uIU/mL (0.358-3.74); Triglycerides 82 mg/dL; Very Low Density Lipoprotein 16 mg/dL (5-40)
== END | disposition home or self-care (01) ==
PROVIDERS: PCP Internal Medicine; Referring Provider Family Medicine; Visit Provider Family Medicine
DX: I10 Essential (primary) hypertension (principal)
CPT/HCPCS: 36415; 80053; 80061; 82306; 84443; 85025

== ENCOUNTER → 2024-08-10 | Outpatient (CLI) | payer BC, SELFPAY ==
[2024-08-10 15:26] LABS: Absolute Lymphocyte Count 1.72 X10^3/uL (0.83-4.51); Absolute Neutrophil Count 2.7 X10^3/uL (2.0-7.7); Basophil# 0.04 X10^3/uL; Basophil% 0.8 % (0-1); Eosinophil# 0.11 X10^3/uL; Eosinophils% 2.2 % (0-5); Hemoglobin 13.5 g/dL (12.0-15.0); Lymphocyte # 1.72 X10^3/ul (0.83-4.51); Mean Corp Hgb Conc 32.1 g/dL (32-36); Mean Corpuscular Hgb 28.7 pg (27.0-32.0); Mean Corpuscular Volume 89.4 fL (81-99); Mean Platelet Vol. 9.3 fl (6.2-12.0); Monocyte# 0.38 X10^3/uL; Monocyte% 7.7 % (0-10); NRBC Flagged by Analyzer 0 % (0-5); Neutrophil # 2.66 X10^3/uL (2.7-7.7); Neutrophil % 54.1 % (47-70); Platelet Count 354 K/mm3 (150-450); RBC Distribution Width CV 12.5 % (11.6-14.6); RBC Distribution Width SD 40.9 fl (35.1-43.9); White Blood Count 4.9 K/mm3 (4.4-11.0)
[2024-08-10 15:43] LABS: Vitamin D,25 Hydroxy 46.1 ng/mL
[2024-08-10 15:57] LABS: AST(SGOT) 15 U/L (15-37); Alanine Aminotransfer ALT/SGPT 16 U/L (13-56); Albumin, Serum 3.7 g/dL (3.2-5.0); Alkaline Phosphatase 96 U/L (45-117); Anion Gap 8 (5-15); BUN 15 mg/dL (7-18); BUN/Creat Ratio 19.6 RATIO (10-20); Calcium,Total 8.7 mg/dL (8.5-10.1); Chloride 106 mmol/L (98-107); Cholesterol 182 mg/dL (200); Creatinine, Serum 0.77 mg/dL (0.55-1.02); EST Glomerular Filtration Rate 81 mL/min (>60); Est Glom Filt Rate - Afr Amer 98 mL/min (>60); Globulin 3.6 g/dL (2.2-4.2); Glucose 79 mg/dL (74-106); High Density Lipoprotein 70 mg/dL; Potassium 3.2 mmol/L (3.5-5.1); Protein, Total 7.3 g/dL (6.4-8.2); Sodium Level 141 mmol/L (136-145); Triglycerides 63 mg/dL; Very Low Density Lipoprotein 13 mg/dL (5-40)
== END | disposition home or self-care (01) ==
LOC: MFPLAB 11:19
PROVIDERS: PCP Family Medicine; Referring Provider Family Medicine; Visit Provider Family Medicine
DX: R53.83 Other fatigue (principal); Z13.220 Encounter for screening for lipoid disorders; Z13.1 Encounter for screening for diabetes mellitus
CPT/HCPCS: 36415; 80053; 80061; 82306; 84443; 85025

== ENCOUNTER → 2024-11-28 | Outpatient (CLI) | payer BC, SELFPAY ==
[2024-11-28 13:02] LABS: Potassium 3.9 mmol/L (3.3-5.1)
== END | disposition home or self-care (01) ==
LOC: MFPLAB 11:00
PROVIDERS: PCP Family Medicine; Referring Provider Family Medicine; Visit Provider Family Medicine
DX: E87.6 Hypokalemia (principal)
CPT/HCPCS: 36415; 84132

== ENCOUNTER → 2025-02-27 | Outpatient (CLI) | payer BC, SELFPAY ==
[2025-02-27 18:23] LABS: Hematocrit 40.6 % (37-47); Hemoglobin 13.2 g/dL (12.0-15.0); Immature Granulocytes Count 0.060 X10^3/uL (0.0-0.0); Mean Corp Hgb Conc 32.5 g/dL (32-36); Mean Corpuscular Volume 89.8 fL (81-99); Mean Platelet Vol. 9.6 fl (6.2-12.0); NRBC Flagged by Analyzer 0 % (0-5); Platelet Count 337 K/mm3 (150-450); RBC Distribution Width CV 12.5 % (11.6-14.6); RBC Distribution Width SD 41.1 fl (35.1-43.9); Red Blood Count 4.52 M/mm3 (4.2-5.4); White Blood Count 5.6 K/mm3 (4.4-11.0)
[2025-02-27 18:53] LABS: AST(SGOT) 19 U/L (<=31); Alanine Aminotransfer ALT/SGPT 10 U/L (<=34); Albumin, Serum 4.3 g/dL (3.4-4.8); Alkaline Phosphatase 97 U/L (35-104); Anion Gap 11 (5-15); BUN 15 mg/dL (4-19); BUN/Creat Ratio 15.6 RATIO (10-20); Calcium,Total 9.3 mg/dL (7.6-11.0); Carbon Dioxide 27.1 mmol/L (21.0-32.0); Chloride 105 mmol/L (98-108); Globulin 2.8 g/dL (2.2-4.2); Glucose 92 mg/dL (70-99); Potassium 3.7 mmol/L (3.3-5.1)
== END | disposition home or self-care (01) ==
LOC: MFPLAB 15:48
PROVIDERS: PCP Family Medicine
DX: M79.606 Pain in leg, unspecified (principal)
CPT/HCPCS: 36415; 80053; 85025

== ENCOUNTER 2025-03-02 20:04 | Emergency (ER) | payer BC, SELFPAY ==
[2025-03-02 20:05] VITALS: BP 142/74; PULSE 67; RESP 18; TEMP 36.9; O2SAT 99; BMI 35.2
--- NOTE | 2025-03-02 20:37 | ED.VIS.LOWEX ---
HPI History of Present Illness HPI Narrative: 64-year-old female history of hypertension. States she has had bilateral leg pain primarily around her knees for the last 2 weeks. Denies any fall injury or trauma. No fever or swelling. Said when she sits they get stiff when she walks for a while feels like her legs get tired. No prior history. No prior leg surgery. Denies any back pain. No recent illness. Saw her primary care physician and did screening labs which were unremarkable. She has an upcoming arterial study of her legs for peripheral circulation. She denies any symptoms of claudication. She has no calf pain or swelling. Chief Complaint: Lower Extremity Injury Informant: patient Occured/Mechanism Mechanism/Context: No injury and No blunt trauma Onset/Context/Timing Onset: Weeks Context: Gradual Onset Timing: Intermittent Current Severity: Mild Maximum Severity: Mild Associated Symptoms Associated Symptoms: Negative for Parasthesia, Weakness or Loss of Funtion Narrative Narrative: 64-year-old female complaining of atraumatic bilateral knee pain for about a week. Prior similar symptoms: No Recent Illness/Hospitalization: No PFSH PFSH Medical History Wears glasses Post-menopausal Migraine headache Non-smoker Positive colorectal cancer screening using Cologuard test Sleep apnea Hypertension Home Medications ?Medication ?Instructions ?Recorded ?Last Taken ?Type cholecalciferol (vitamin D3) 125 125 mcg PO .QOD 03/06/21 Unknown History mcg (5,000 unit) capsule amlodipine 5 mg tablet 5 mg PO DAILY #90 tabs 12/09/22 Unknown Rx Allergy/AdvReac Type Severity Reaction Status Date / Time No Known Allergies Allergy Verified 03/02/25 20:08 Family History Mother Depression Fibromyalgia Father Hypertension Grandfather Cancer Surgical History History of weight loss surgery Social History Smoking Status: Never smoker alcohol intake: never substance use type: does not use caffeine: No what type of physical activity do you participate in: other frequency: 3-4 times per week seatbelt use: always do you feel safe at home: Yes additional social history: [employer]- [employer] Consult[employer] ROS ROS ED ROS Narrative Denies recent illness. Constitutional Constitutional ED: Denies chills or fever(s) Eyes Eyes: Denies blurry vision ENT ENT ED: Denies ear pain Cardiovascular Cardiovascular: Denies chest pain Respiratory/Chest Respiratory/Chest: Denies cough Gastrointestinal Gastrointestinal: Denies abdominal pain Genitourinary Genitourinary ED: Denies dysuria or hematuria Musculoskeletal Musculoskeletal: Denies arthralgias Integumentary Denies abscess Neurologic Neurologic: Denies headache(s) Psychiatric Psychiatric: Denies anxiety Endocrine Endocrinology: Denies polydipsia Hematologic/Lymphatic Hematologic/Lymphatic: Denies easy bleeding, easy bruising or lymphadenopathy Allergic/Immunologic Allergic/Immunologic ED: Denies mouth swelling, tongue swelling or urticaria EXAM Physical Exam Narrative Exam Narrative: 64-year-old female sitting upright in bed. No distress. Vital signs stable afebrile. H EENT exam pupils round react light. Moist mucous membranes. Neck nontender. No lymphadenopathy. Lungs clear to auscultation bilaterally. Heart regular rate and rhythm rate about 70 no murmur. Chest wall ribs nontender. Abdomen soft nontender. No peritoneal signs. Back nontender. Moves all 4 extremities. Normal range of motion. 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 Bilateral dorsi plantarflexion. Full flexion extension of both hips and knees ankles and feet. Normal DP pulses. Calves nontender without edema or cords. Knees no significant swelling. 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 There is no signs of septic joint. She has no inguinal lymphadenopathy. Lower extremity exam is basically normal her arthritis in her knees. Neurologic exam normal. Normal strength and sensation. Const Vital Signs: 03/02/25 20:05 Temperature 98.4 F Temperature Source Temporal Pulse Rate 67 Respiratory Rate 18 Blood Pressure 142/74 H Blood Pressure Mean 96 Pulse Ox 99 Oxygen Delivery Method Room Air Positive well nourished and well developed; Negative for cachectic, contractures or unkempt General Appearance ED: well developed and NAD; Negative for unkempt, cachectic or contractures Nutritional Appearance: Negative for cachectic HEENT Reports moist mucous membranes normocephalic and atraumatic Eyes PERRL Neck full ROM and supple Chest Wall inspection of chest normal and palpation of chest normal Resp normal respiratory effort, no retractions and clear to auscultation bilaterally Cardio regular rate, regular rhythm, S1 normal heart sound, S2 normal heart sound and no murmurs GI non-tender, non-distended and no masses Palpation: soft; Negative for tender, guarding or rebound tenderness present Back/Spine no CVA tenderness Extremity normal to inspection and full ROM General Extremety ED: Negative for cyanosis, edema or weight-bearing difficulty General Extremity: Negative for cyanosis, edema or weight-bearing difficulty Neuro oriented x3, CN's II-XII intact bilaterally and moves all extremities Sensorium / Orientation: alert, oriented to person, oriented to place and oriented to time Motor Exam: strength 5/5 throughout Psych mental status grossly normal Appearance: Negative for unkempt Skin no wounds Lesions: no lesions Rashes: no rashes MDM MDM MDM Narrative Medical decision making narrative: 64-year-old female with knee discomfort bilaterally and subjective leg weakness at times. Exam is normal there may be some mild arthritis. She had recent labs done by her primary care physician CBC and chemistries unremarkable. She has good pulses. There is no signs of infection. There is no history of trauma. There is no signs of DVT or PE and she has no history of that or risk factors. There is really no test to do right now at this time. She is comfortable being discharged home. Will use Motrin for pain and inflammation and Tylenol ice to her knees follow-up if not improving. She has an outpatient vascular study pending for arterial flow but she has very good bilateral DP pulses. Patient is comfortable with the plan. History & Record Review Discussion w/independent historian: Patient Additional record(s) reviewed:: Prior inpatient record, Prior outpatient record, Prior ED visit and Prior labs Lab Data Attestation: I reviewed the patient's lab results. Lab results narrative: Reviewed recent outpatient labs that were unremarkable including a CBC and chemistry. Discharge Plan Triage Chief Complaint: Lower Extremity Injury ED Provider: Jack Crespo Dx/Rx/DC Orders Clinical Impression: Acute leg pain Prescriptions: No Action cholecalciferol (vitamin D3) 125 mcg (5,000 unit) capsule 125 mcg PO .QOD amlodipine 5 mg tablet 5 mg PO DAILY Qty: 90 3RF Primary Care Provider: Carleen Appiah Referrals: Carleen Appiah MD [Primary Care Provider] - 1 Week if not improving Activity Restrictions/Additional Instructions: Ice to your knees to decrease inflammation and pain. Motrin for pain and swelling. 2-3 Motrin 2-3 times a day. Tylenol for pain. Follow-up with your doctor if not improving. This may or may not be from arthritis. Print Language: Congolese Disposition Disposition: Home, Self Care
--- OUTSIDE RECORDS SUMMARY | 2025-03-02 20:41 | XMS RPT_ITS | CCD ---
Author Organization [facility] Care Team Providers Care [employer] Principal Name Role Phone Dossi Patience BRUSH Unavailable Judy Sun MD Unavailable [phone] Joseph Daigle Unavailable Unavailable Unavailable, Family Physician Unavailable Un available Unavailable, Family Physician Unavailable Un available Seamus Laguerre Unavailable Unavailable SAIMA CONTRERAS Unavailable Unavailable Dr. Vianca Gay Primary Care Provider Dr. Vianca Gay Attending Provider Dr. Vianca Gay Referring Provider VIANCA GAY Referring Unavailable Vianca Gay Primary Care Provider Carleen Appiah MD Primary Care Provider Carleen Appiah MD Attending Provider [phone] Carleen Appiah MD Referring Provider [phone] Carleen Appiah Referring Unavailable Carleen Appiah Attending Unavailable Carleen Appiah Primary Care Unavailable Carleen Appiah Primary Care Unavailable Carleen Appiah Referring Unavailable Carleen Appiah Attending Unavailable Medications Current Medications Medication Drug Class(es) Dates Sig (Normalized) Sig (Original) cholecalciferol 0.125 mg oral capsule (9 sources) Vitamin D Start: 09-12-2019 End: 03-06-2021 take 1 capsule by mouth every other day Cholecalciferol (Vitamin D3) 125 mcg (5,000 unit) capsule Active 125 ug PO .QOD March 06, 2021 4:13pm Start: 07-12-2017 End: 08-30-2019 take 1 capsule by mouth once Cholecalciferol (Vitamin D3) 5,000 unit capsule Discontinued 5000 U PO ONCE July 12, 2017 1:00am August 30, 2019 12:51pm cholodal silver (1 source) Start: 07-23-2020 cholodal silve r Active PO July 23, 2020 9:39am elderberry fruit 200 mg oral capsule (3 sources) Start: 07-23-2020 take 1 capsule by mouth once daily Elderberry Fruit 200 mg capsule Active 200 mg PO DAILY July 23, 2020 1:00am omeprazole 20 mg delayed release oral capsule (2 sources) Proton Pump Inhibitor Start: 08-28-2022 take 1 capsule by mouth once daily Omeprazole 20 mg capsule,delayed release(DR/EC) Active 20 mg PO DAILY August 28, 2022 1:00am Completed/Discontinued Medications Medication Drug Class(es) Dates Sig (Normalized) Sig (Original) amLODIPine 5 mg oral tablet (20 sources) Dihydropyridine Calcium Channel Camilla Start: 08-30-2019 End: 12-09-2022 take 1 tablet by mouth once daily Amlodipine 5 mg tablet Discontinued 5 mg PO DAILY October 09, 2022 2:15pm December 09, 2022 3:22pm azithromycin 250 mg oral tablet (3 sources) Macrolide Antimicrobial Start: 02-18-2020 End: 03-22-2020 take 2-5 tablets by mouth once daily Azithromycin (Zithromax Z-Herb) 250 mg tablet Discontinued 0 PO .COMPLEX 6 February 18, 2020 12:00am March 22, 2020 1:39pm take 500 mg today (day 1), then 250 mg for 4 days (days 2-5) Elderberry Fruit-Honey (2 sources) Start: 09-12-2019 End: 03-22-2020 take 1 mL by mouth once daily Elderberry Fruit-Honey Discontinued 7.5 ML PO DAILY September 12, 2019 9:16am March 22, 2020 1:40pm Start: 09-12-2019 End: 03-22-2020 take 1 mL by mouth once daily Elderberry Fruit-Honey Discontinued 7.5 ML PO DAILY September 12, 2019 1:00am March 22, 2020 1:40pm Elderberry Fruit-Honey 0.7-3 gram/7.5 mL liquid (1 source) Start: 09-12-2019 End: 03-22-2020 take 1 mL by mouth once daily Elderberry Fruit-Honey 0.7-3 gram/7.5 mL liquid Discontinued 7.5 mL PO DAILY September 12, 2019 1:00am March 22, 2020 1:40pm lisinopril 10 mg oral tablet (6 sources) Angiotensin Converting Enzyme Inhibitor Start: 07-12-2017 End: 08-30-2019 take 1 tablet by mouth once daily Lisinopril 10 mg tablet Discontinued 10 mg PO daily July 12, 2017 1:00am August 30, 2019 12:52pm Start: 06-09-2016 LISINOPRIL 20 MG once daily LISINOPRIL 20 MG Patience Booth DC Multivitamin,Zg-Yzyz-Xvwvynk s (Complete Multivitamin) tablet (1 source) Start: 07-12-2017 End: 08-30-2019 Multivitamin,Mm-Itrl-Akuvqwg s (Complete Multivitamin) tablet Discontinued 1 {tbl} PO daily July 12, 2017 1:00am August 30, 2019 12:52pm multivitamin,gp-narn-evsnykt s tablet (2 sources) Start: 07-12-2017 End: 08-30-2019 take 1 tablet by mouth once daily multivitamin,ap-nalo-rirykshp tablet Discontinued 1 TABLET PO daily July 12, 2017 12:26pm August 30, 2019 12:52pm Start: 07-12-2017 End: 08-30-2019 take 1 tablet by mouth once daily multivitamin,nh-wxni-fgygloxj tablet Discontinued 1 TABLET PO daily July 12, 2017 1:00am August 30, 2019 12:52pm predniSONE 20 mg oral tablet (3 sources) Start: 02-21-2020 End: 03-22-2020 take 2 tablets by mouth once daily Prednisone 20 mg tablet Discontinued 40 mg PO DAILY February 21, 2020 12:00am March 22, 2020 1:39pm Start: 02-21-2020 End: 03-22-2020 take 40 mg by mouth once daily Prednisone Discontinued 40 MG PO DAILY February 21, 2020 1:22pm March 22, 2020 1:39pm vitamin k 0.1 mg oral tablet (3 sources) Start: 07-12-2017 End: 08-30-2019 Phytonadione (Vitamin K1) 10 0 mcg tablet Discontinued 100 ug PO daily July 12, 2017 1:00am August 30, 2019 12:52pm Problems Active Problems Problem Classification Problem Date Documented Da te Episodic/Chronic Essential hypertension (4 sources) Hypertensive disorder; Translations: [Essential (primary) hypertension] 09-12-2019 Chronic Fluid and electrolyte disorders (1 source) Hypokalemia; Translations: [Hypokalemia] Onset: 12-04-2024 Episodic Nonmalignant breast conditions (2 sources) Breast lump; Translations: [Unspecified lump in the left breast, unspecified quadrant] 07-22-2022 Episodic Nonspecific chest pain (3 sources) Chest pain; Translations: [Chest pain, unspecified] 02-03-2020 Episodic Nutritional deficiencies (4 sources) Vitamin D deficiency; Translations: [Vitamin D deficiency, unspecified] 03-06-2021 Chronic Other bone disease and musculoskeletal deformities (3 sources) Posterior calcaneal exostosis; Translations: [Juvenile osteochondrosis of tarsus, 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-2021 Chronic Other bone disease and musculoskeletal deformities (1 source) Juvenile osteochondrosis of tarsus, right ankle; 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 Other connective tissue disease (3 sources) Heel pain; Translations: [Pain in right foot] 11-05-2021 Episodic Other connective tissue disease (1 source) Pain in right foot; Translations: [Pain in limb] Episodic Other gastrointestinal disorders (2 sources) Stool DNA-based colorectal cancer screening positive; Translations: [Other fecal abnormalities] 07-14-2022 Episodic Other screening for suspected conditions (not mental disorders or infectious disease) (13 sources) Patient encounter status; Translations: [Encounter for screening for diabetes mellitus] Onset: 07-04-2022 Episodic Residual codes; unclassified (4 sources) Obstructive sleep apnea syndrome; Translations: [Obstructive sleep apnea (adult) (pediatric)] 09-12-2019 Chronic Past or Other Problems Problem Classification Problem Date Documented Da te Episodic/Chronic Malaise and fatigue (1 source) Other fatigue; Translations: [Other fatigue] Onset: 08-29-2024 Episodic Other bone disease and musculoskeletal deformities (12 sources) Pelvic somatic dysfunction; Translations: [Segmental and somatic dysfunction] Onset: 06-09-2016 03-09-2017 Episodic Sprains and strains (6 sources) Sprain of joint; Translations: [Sprain of unspecified ligament of right ankle, initial encounter] Onset: 06-09-2016 06-30-2016 Episodic Results Test Name Value Interpretation Reference Range Facility Pot[facility] 11-28-2024 Potassium [Moles/Vol] 3.9 mmol/L Normal 3.3-5.1 [facility] Comment on above: Order Comment: Order Date: 08/12/24 Order Info: [id number] - K Performed By: #### L 501.5600 #### [facility] [place], [address] Potassium measurement (mass/ volume)Ordered By: Carleen Appiah on 11-28-2024 Potassium (Unsp spec) [Mass/Vol] 3.9 mmol/L 3.3-5.1 [facility] Absolute lymphocyte countOrd ered By: Carleen Appiah on 08-10-2024 Lymphocytes Auto (Unsp spec) [#/Vol] 1.72 10*3/uL 0.83-4.51 [facility] Absolute neutrophil countOrd ered By: Carleen Bijal on 08-10-2024 Neutrophils (Bld) [#/Vol] 2.7 10*3/uL 2.0-7.7 [facility] Albumin to globulin ratioOrd ered By: Carleen Appiah on 08-10-2024 Albumin/Globulin [Mass ratio] 1.0 {ratio} 0.9-2.4 [facility] Automated lymphocyte count a s percentage of total leukocytesOrdered By: Carleen Appiah on 08-10-2024 Lymphocytes/100 WBC Auto (Unsp spec) 35.0 % 19-41 [facility] Basophil percentageOrdered B y: Carleen Appiah on 08-10-2024 Basophils/100 WBC (Bld) 0.8 % 0-1 [facility] Bilirubin, totalOrdered By: Carleen Appiah on 08-10-2024 Bilirubin [Mass/Vol] 0.90 mg/dL 0.20-1.00 [facility] Comment on above: For patients on eltr ombopag therapy, use of Dimension Squires TBIL is not recommended. Blood urea nitrogen (BUN)/cr eatinine ratioOrdered By: Carleen Appiah on 08-10-2024 Urea nitrogen/Creatinine [Mass ratio] 19.6 mg/mg 10-20 [facility] CBC W/Diff, Automatedon 07-26 Absolute Lymph 1.72 X10 3/uL Normal 0.83-4.51 [facility] Comment on above: Order Comment: Order Date: 08/10/24 Order Info: [id number] - CBCD Performed By: #### L [id number], L100.0100, L500.4050, L506.1000, L500.4100 #### [facility] [address] [place], [address] Absolute Neut 2.7 X10 3/uL Normal 2.0-7.7 [facility] Comment on above: Order Comment: Order Date: 08/10/24 Order Info: [id number] - CBCD Performed By: #### L [id number], L100.0100, L500.4050, L506.1000, L500.4100 #### [facility] [address] [place], [address] Basophils/100 WBC (Bld) 0.8 % Normal 0-1 [facility] Comment on above: Order Comment: Order Date: 08/10/24 Order Info: [id number] - CBCD Performed By: #### L [id number], L100.0100, L500.4050, L506.1000, L500.4100 #### [facility] [address] [place], [address] Eosinophils/100 WBC (Bld) 2.2 % Normal 0-5 [facility] Comment on above: Order Comment: Order Date: 08/10/24 Order Info: [id number] - CBCD Performed By: #### L [id number], L100.0100, L500.4050, L506.1000, L500.4100 #### [facility] [address] [place], [address] Erythrocyte distribution width (RBC) [Ratio] 12.5 % Normal 11.6-14.6 [facility] Comment on above: Order Comment: Order Date: 08/10/24 Order Info: [id number] - CBCD Performed By: #### L [id number], L100.0100, L500.4050, L506.1000, L500.4100 #### [facility] [address] [place], [address] Hematocrit (Bld) [Volume fraction] 42.0 % Normal 37-47 [facility] Comment on above: Order Comment: Order Date: 08/10/24 Order Info: 0184-1 - CBCD Performed By: #### L [id number], L100.0100, L500.4050, L506.1000, L500.4100 #### [facility] [address] [place], [address] Hemoglobin (Bld) [Mass/Vol] 13.5 g/dL Normal 12.0-15.0 [facility] Comment on above: Order Comment: Order Date: 08/10/24 Order Info: 0184-1 - CBCD Performed By: #### L [id number], L100.0100, L500.4050, L506.1000, L500.4100 #### [facility] [address] [place], [address] IG% 0.200 Normal 0.0-0.9 [facility] Comment on above: Order Comment: Order Date: 08/10/24 Order Info: [id number] - CBCD Result Comment: IG% - Immature Granulocytes (promyelocytes, myelocytes and metamyelocytes) > 1% indicates that a LEFT SHIFT is Present. Performed By: #### L [id number], L100.0100, L500.4050, L506.1000, L500.4100 #### [facility] [address] [place], [address] Lymphocytes/100 WBC (Bld) 35.0 % Normal 19-41 [facility] Comment on above: Order Comment: Order Date: 08/10/24 Order Info: [id number] - CBCD Performed By: #### L [id number], L100.0100, L500.4050, L506.1000, L500.4100 #### [facility] [address] [place], [address] MCH (RBC) [Entitic mass] 28.7 pg Normal 27.0-32.0 [facility] Comment on above: Order Comment: Order Date: 08/10/24 Order Info: [id number] - CBCD Performed By: #### L [id number], L100.0100, L500.4050, L506.1000, L500.4100 #### [facility] [address] [place], [address] MCHC (RBC) [Mass/Vol] 32.1 g/dL Normal 32-36 [facility] Comment on above: Order Comment: Order Date: 08/10/24 Order Info: [id number]- - CBCD Performed By: #### L [id number], L100.0100, L500.4050, L506.1000, L500.4100 #### [facility] [address] [place], [address] MCV (RBC) [Entitic vol] 89.4 fL Normal 81-99 [facility] Comment on above: Order Comment: Order Date: 08/10/24 Order Info: 0184- - CBCD Performed By: #### L [id number], L100.0100, L500.4050, L506.1000, L500.4100 #### [facility] [address] [place], [address] Monocytes/100 WBC (Bld) 7.7 % Normal 0-10 [facility] Comment on above: Order Comment: Order Date: 08/10/24 Order Info: 0184-1 - CBCD Performed By: #### L [id number], L100.0100, L500.4050, L506.1000, L500.4100 #### [facility] [address] [place], [address] Neutrophils/100 WBC (Bld) 54.1 % Normal 47-70 [facility] Comment on above: Order Comment: Order Date: 08/10/24 Order Info: 0184-1 - CBCD Performed By: #### L [id number], L100.0100, L500.4050, L506.1000, L500.4100 #### [facility] [address] [place], [address] Nucleated RBC (Bld) [#/Vol] 0 10*3/uL Normal 0-5 [facility] Comment on above: Order Comment: Order Date: 08/10/24 Order Info: 0184-1 - CBCD Performed By: #### L [id number], L100.0100, L500.4050, L506.1000, L500.4100 #### [facility] [address] [place], [address] Platelet mean volume (Bld) [Entitic vol] 9.3 fL Normal 6.2-12.0 [facility] Comment on above: Order Comment: Order Date: 08/10/24 Order Info: 0184-1 - CBCD Performed By: #### L [id number], L100.0100, L500.4050, L506.1000, L500.4100 #### [facility] [address] [place], [address] Platelets (Bld) [#/Vol] 354 10*3/uL Normal 150-450 [facility] Comment on above: Order Comment: Order Date: 08/10/24 Order Info: 0184-1 - CBCD Performed By: #### L [id number], L100.0100, L500.4050, L506.1000, L500.4100 #### [facility] [address] [place], [address] RBC (Bld) [#/Vol] 4.70 10*6/uL Normal 4.2-5.4 [facility] Comment on above: Order Comment: Order Date: 08/10/24 Order Info: 0184-1 - CBCD Performed By: #### L 501.9520, L100.0100, L500.4050, L506.1000, L500.4100 #### [facility] [address] [place], [address] RDW SD 40.9 fl Normal 35.1-43.9 [facility] Comment on above: Order Comment: Order Date: 08/10/24 Order Info: 0184-1 - CBCD Performed By: #### L [id number], L100.0100, L500.4050, L506.1000, L500.4100 #### [facility] [address] [place], [address] WBC (Bld) [#/Vol] 4.9 10*3/uL Normal 4.4-11.0 [facility] Comment on above: Order Comment: Order Date: 08/10/24 Order Info: [id number] - CBCD Performed By: #### L 501.9520, L100.0100, L500.4050, L506.1000, L500.4100 #### [facility] [address] [place], [place], [address] Carbon dioxide measurementOr dered By: Carleen Appiah on 08-10-2024 CO2 [Moles/Vol] 27.0 mmol/L 21.0-32.0 [facility] Chloride measurementOrdered By: Carleen Appiah on 08-10-2024 Chloride [Moles/Vol] 106 mmol/L 98-107 [facility] Comprehensive Metabolic Prof ilon 08-10-2024 Albumin [Mass/Vol] 3.7 g/dL Normal 3.2-5.0 [facility] Comment on above: Order Comment: Order Date: 08/10/24 Order Info: [id number] - CMP Order Info: [id number] - LIPID Order Info: [id number] - TSH Performed By: #### L 501.9520, L100.0100, L500.4050, L506.1000, L500.4100 #### [facility] [address] [place], [address] Albumin/Globulin [Mass ratio] 1.0 {ratio} Normal 0.9-2.4 [facility] Comment on above: Order Comment: Order Date: 08/10/24 Order Info: [id number] - CMP Order Info: [id number] - LIPID Order Info: [id number] - TSH Performed By: #### L [id number], L100.0100, L500.4050, L506.1000, L500.4100 #### [facility] [address] [place], [address] ALK P 96 U/L Normal 45-117 [facility] Comment on above: Order Comment: Order Date: 08/10/24 Order Info: [id number] - CMP Order Info: - LIPID Order Info: [id number] - TSH Performed By: #### L 501.9520, L100.0100, L500.4050, L506.1000, L500.4100 #### [facility] [address] [place], [place], [address] ALT [Catalytic activity/Vol] 16 U/L Normal 13-56 [facility] Comment on above: Order Comment: Order Date: 08/10/24 Order Info: 0786- - CMP Order Info: [id number] - LIPID Order Info: [id number] - TSH Performed By: #### L 501.9520, L100.0100, L500.4050, L506.1000, L500.4100 #### [facility] [address] [place], [address] AST [Catalytic activity/Vol] 15 U/L Normal 15-37 [facility] Comment on above: Order Comment: Order Date: 08/10/24 Order Info: [id number] - CMP Order Info: [id number] - LIPID Order Info: [id number] - TSH Performed By: #### L 501.9520, L100.0100, L500.4050, L506.1000, L500.4100 #### [facility] [address] [place], [address] Bilirubin [Mass/Vol] 0.90 mg/dL Normal 0.20-1.00 [facility] Comment on above: Order Comment: Order Date: 08/10/24 Order Info: [id number] - CMP Order Info: [id number] - LIPID Order Info: [id number] - TSH Result Comment: For patients on eltrombopag therapy, use of Dimension Squires TBIL is not recommended. Performed By: #### L 501.9520, L100.0100, L500.4050, L506.1000, L500.4100 #### [facility] [address] [place], [address] BUN/CRE 19.6 RATIO Normal 10-20 [facility] Comment on above: Order Comment: Order Date: 08/10/24 Order Info: 07- - CMP Order Info: [id number] - LIPID Order Info: [id number] - TSH Performed By: #### L 501.9520, L100.0100, L500.4050, L506.1000, L500.4100 #### [facility] [address] [place], [address] CA,Total 8.7 mg/dL Normal 8.5-10.1 [facility] Comment on above: Order Comment: Order Date: 08/10/24 Order Info: 0786- - CMP Order Info: [id number] - LIPID Order Info: [id number] - TSH Performed By: #### L 501.9520, L100.0100, L500.4050, L506.1000, L500.4100 #### [facility] [address] [place], [address] Chloride [Moles/Vol] 106 mmol/L Normal 98-107 [facility] Comment on above: Order Comment: Order Date: 08/10/24 Order Info: [id number] - CMP Order Info: [id number] - LIPID Order Info: [id number] - TSH Performed By: #### L 501.9520, L100.0100, L500.4050, L506.1000, L500.4100 #### [facility] [address] [place], [address] CO2 [Moles/Vol] 27.0 mmol/L Normal 21.0-32.0 [facility] Comment on above: Order Comment: Order Date: 08/10/24 Order Info: 785- - CMP Order Info: [id number] - LIPID Order Info: [id number] - TSH Performed By: #### L 501.9520, L100.0100, L500.4050, L506.1000, L500.4100 #### [facility] [address] [place], [address] Creatinine [Mass/Vol] 0.77 mg/dL Normal 0.55-1.02 [facility] Comment on above: Order Comment: Order Date: 08/10/24 Order Info: [id number] - CMP Order Info: - LIPID Order Info: [id number] - TSH Result Comment: The validity of the calculated GFR GFRAA in patients over 70 years has not been determined. Clinical correlation is essential. Performed By: #### L 501.9520, L100.0100, L500.4050, L506.1000, L500.4100 #### [facility] [address] [place], [address] EST GFR - AA 98 mL/min Normal >60 [facility] Comment on above: Order Comment: Order Date: 08/10/24 Order Info: 07 - CMP Order Info: [id number] - LIPID Order Info: [id number] - TSH Result Comment: Afri can Mongolian GFR Calc Performed By: #### L 501.9520, L100.0100, L500.4050, L506.1000, L500.4100 #### [facility] [address] [place], [address] GAP 8 Normal 5-15 [facility] Comment on above: Order Comment: Order Date: 08/10/24 Order Info: [id number]- - CMP Order Info: - LIPID Order Info: [id number] - TSH Performed By: #### L 501.9520, L100.0100, L500.4050, L506.1000, L500.4100 #### [facility] [address] [place], [address] GFR/1.73 sq M.predicted among non-blacks MDRD (S/P/Bld) [Vol rate/Area] 81 mL/min/{1.73_m2} Normal >60 [facility] Comment on above: Order Comment: Order Date: 08/10/24 Order Info: 07- - CMP Order Info: - LIPID Order Info: [id number] - TSH Result Comment: Non- GFR Calc Performed By: #### L 501.9520, L100.0100, L500.4050, L506.1000, L500.4100 #### [facility] [address] [place], [address] Globulin (S) [Mass/Vol] 3.6 g/dL Normal 2.2-4.2 [facility] Comment on above: Order Comment: Order Date: 08/10/24 Order Info: 0786 - CMP Order Info: [id number] - LIPID Order Info: [id number] - TSH Performed By: #### L 501.9520, L100.0100, L500.4050, L506.1000, L500.4100 #### [facility] [address] [place], [address] Glucose [Mass/Vol] 79 mg/dL Normal 74-106 [facility] Comment on above: Order Comment: Order Date: 08/10/24 Order Info: 0786- - CMP Order Info: [id number] - LIPID Order Info: [id number] - TSH Performed By: #### L 501.9520, L100.0100, L500.4050, L506.1000, L500.4100 #### [facility] [address] [place], [address] Potassium [Moles/Vol] 3.2 mmol/L Low 3.5-5.1 [facility] Comment on above: Order Comment: Order Date: 08/10/24 Order Info: [id number] - CMP Order Info: [id number] - LIPID Order Info: [id number] - TSH Performed By: #### L 501.9520, L100.0100, L500.4050, L506.1000, L500.4100 #### [facility] [address] [place], [address] Sodium [Moles/Vol] 141 mmol/L Normal 136-145 [facility] Comment on above: Order Comment: Order Date: 08/10/24 Order Info: [id number] - CMP Order Info: [id number] - LIPID Order Info: [id number] - TSH Performed By: #### L 501.9520, L100.0100, L500.4050, L506.1000, L500.4100 #### [facility] [address] [place], [address] T PROT 7.3 g/dL Normal 6.4-8.2 [facility] Comment on above: Order Comment: Order Date: 08/10/24 Order Info: [id number] - CMP Order Info: [id number] - LIPID Order Info: [id number] - TSH Performed By: #### L 501.9520, L100.0100, L500.4050, L506.1000, L500.4100 #### [facility] [address] [place], [address] Urea nitrogen [Mass/Vol] 15 mg/dL Normal 7-18 [facility] Comment on above: Order Comment: Order Date: 08/10/24 Order Info: [id number] - CMP Order Info: [id number] - LIPID Order Info: [id number] - TSH Performed By: #### L [id number], L100.0100, L500.4050, L506.1000, L500.4100 #### [facility] [place], [address] Eosinophil percentageOrdered By: Carleen Appiah on 08-10-2024 Eosinophils/100 WBC (Bld) 2.2 % 0-5 [facility] Erythrocyte distribution wid th ratioOrdered By: Carleen Appiah on 08-10-2024 Erythrocyte distribution width (RBC) [Ratio] 12.5 % 11.6-14.6 [facility] Erythrocyte distribution wid th standard deviationOrdered By: Carleen Appiah on 08-10-2024 Erythrocyte distribution width (RBC) [Ratio] 40.9 fl 35.1-43.9 [facility] Glomerular filtration rate ( GFR) estimationOrdered By: Carleen Appiha on 08-10-2024 GFR/1.73 sq M.predicted among non-blacks MDRD (S/P/Bld) [Vol rate/Area] 81 mL/min/{1.73_m2} >60 [facility] Comment on above: Non- GFR Calc Glucose measurementOrdered B y: Carleen Appiah on 08-10-2024 Glucose [Mass/Vol] 79 mg/dL 74-106 [facility] Hematocrit Auto (Bld) [Volum e fraction]Ordered By: Carleen Appiah on 08-10-2024 Hematocrit (Bld) [Volume fraction] 42.0 % 37-47 [facility] Hemoglobin measurementOrdere d By: Carleen Appiah on 08-10-2024 Hemoglobin (Bld) [Mass/Vol] 13.5 g/dL 12.0-15.0 [facility] High density lipoprotein (HD L) measurementOrdered By: Carleen Appiah on 08-10-2024 Cholesterol in HDL [Mass/Vol] 70 mg/dL >40 [facility] Comment on above: The drugs N-Acetylcy steine and Metamizole may falsely depress this assay. Reference Range HDL <40 mg/dL Low HDL Cholesterol HDL >or= 60 mg/dL High HDL Cholesterol Immature granulocytes/100 WB C Auto (Bld)Ordered By: Carleen Appiah on 08-10-2024 Immature granulocytes/100 WBC (Bld) 0.200 % 0.0-0.9 [facility] Comment on above: IG% - Immature Granu locytes (promyelocytes, myelocytes and metamyelocytes) > 1% indicates that a LEFT SHIFT is Present. Laboratory - Chemistry and C hemistry - challengeOrdered By: Carleen Appiah on 08-10-2024 AST [Catalytic activity/Vol] 15 U/L 15-37 [facility] Lipid Profileon 08-10-2024 Cholesterol [Mass/Vol] 182 mg/dL Normal 200 [facility] Comment on above: Order Comment: Order Date: 08/10/24 Order Info: [id number] - CMP Order Info: [id number] - LIPID Order Info: [id number] - TSH Result Comment: <200 mg/dL Desirable 200-240 mg/dL Borderline >240 mg/dL High Risk Performed By: #### L 501.9520, L100.0100, L500.4050, L506.1000, L500.4100 #### [facility] [address] [place], [address] Cholesterol in HDL [Mass/Vol] 70 mg/dL Normal [facility] Comment on above: Order Comment: Order Date: 08/10/24 Order Info: [id number] - CMP Order Info: [id number] - LIPID Order Info: 6-3 - TSH Result Comment: The drugs N-Acetylcysteine and Metamizole may falsely depress this assay. Reference Range HDL <40 mg/dL Low HDL Cholesterol HDL >or= 60 mg/dL High HDL Cholesterol Performed By: #### L 501.9520, L100.0100, L500.4050, L506.1000, L500.4100 #### [facility] [address] [place], [address] Cholesterol in LDL [Mass/Vol] 99 mg/dL Normal 0-130 [facility] Comment on above: Order Comment: Order Date: 08/10/24 Order Info: [id number] - CMP Order Info: [id number] - LIPID Order Info: [id number] - TSH Performed By: #### L 501.9520, L100.0100, L500.4050, L506.1000, L500.4100 #### [facility] [address] [place], [address] Cholesterol in VLDL [Mass/Vol] 13 mg/dL Normal 5-40 [facility] Comment on above: Order Comment: Order Date: 08/10/24 Order Info: [id number] - CMP Order Info: [id number] - LIPID Order Info: [id number] - TSH Performed By: #### L 501.9520, L100.0100, L500.4050, L506.1000, L500.4100 #### [facility] [address] [place], [address] Triglyceride [Mass/Vol] 63 mg/dL Normal [facility] Comment on above: Order Comment: Order Date: 08/10/24 Order Info: [id number] - CMP Order Info: [id number] - LIPID Order Info: [id number] - TSH Result Comment: The drugs N-Acetylcysteine and Metamizole may falsely depress this assay. Serum Triglycerides Reference Interval Normal <150 mg/dL Borderline high 150 - 199 mg/dL High 200 - 499 mg/dL Very High > or = 500 mg/dL Performed By: #### L 501.9520, L100.0100, L500.4050, L506.1000, L500.4100 #### [facility] [address] [place], [address] Low density lipoprotein (LDL ) cholesterol measurementOrdered By: Carleen Appiah on 08-10-2024 Cholesterol in LDL [Mass/Vol] 99 mg/dL 0-130 [facility] MCV (mean corpuscular volume ) determinationOrdered By: Carleen Appiah on 08-10-2024 MCV (RBC) [Entitic vol] 89.4 fL 81-99 [facility] Mean corpuscular hemoglobin (MCH) determinationOrdered By: Carleen Appiah on 08-10-2024 MCH (RBC) [Entitic mass] 28.7 pg 27.0-32.0 [facility] Mean corpuscular hemoglobin concentration (MCHC) determinationOrdered By: Carleen Appiah on 08-10-2024 MCHC (RBC) [Mass/Vol] 32.1 g/dL 32-36 [facility] Mean platelet volume determi nationOrdered By: Carleen Appiah on 08-10-2024 Platelet mean volume (Bld) [Entitic vol] 9.3 fL 6.2-12.0 [facility] Monocyte percentageOrdered B y: Carleen Appiah on 08-10-2024 Monocytes/100 WBC (Bld) 7.7 % 0-10 [facility] Neutrophil percentageOrdered By: Carleen Appiah on 08-10-2024 Neutrophils/100 WBC (Bld) 54.1 % 47-70 [facility] Nucleated red blood cell per centageOrdered By: Carleen Appiah on 08-10-2024 Nucleated RBC/100 WBC (Bld) [Ratio] 0 % 0-5 [facility] Platelet countOrdered By: Merlene Appiah on 08-10-2024 Platelets (Bld) [#/Vol] 354 10*3/uL 150-450 [facility] Potassium measurementOrdered By: Carleen Appiah on 08-10-2024 Potassium [Moles/Vol] 3.2 mmol/L Low 3.5-5.1 [facility] RBC Auto (Bld) [#/Vol]Ordere d By: Carleen Appiah on 08-10-2024 RBC (Bld) [#/Vol] 4.70 10*6/uL 4.2-5.4 [facility] Serum anion gap measurementO rdered By: Carleen Appiah on 08-10-2024 Anion gap [Moles/Vol] 8 mmol/L 5-15 [facility] Serum globulin measurementOr dered By: Carleen Appiah on 08-10-2024 Globulin (S) [Mass/Vol] 3.6 g/dL 2.2-4.2 [facility] Serum or plasma alanine chaney otransferase (ALT) measurementOrdered By: Carleen Appiah on 08-10-2024 ALT [Catalytic activity/Vol] 16 U/L 13-56 [facility] Serum or plasma albumin magaly urement (mass/volume)Ordered By: Carleen Appiah on 08-10-2024 Albumin [Mass/Vol] 3.7 g/dL 3.2-5.0 [facility] Serum or plasma alkaline lucrecia sphatase measurementOrdered By: Carleen Appiah on 08-10-2024 ALP [Catalytic activity/Vol] 96 U/L 45-117 [facility] Serum or plasma calcium magaly urement (mass/volume)Ordered By: Carleen Appiah on 08-10-2024 Calcium [Mass/Vol] 8.7 mg/dL 8.5-10.1 [facility] Serum or plasma cholesterol measurement (mass/volume)Ordered By: Carleen Appiah on 08-10-2024 Cholesterol [Mass/Vol] 182 mg/dL <200 [facility] Comment on above: <200 mg/dL Desirable 200-240 mg/dL Borderline >240 mg/dL High Risk Serum or plasma creatinine m easurement (mass/volume)Ordered By: Carleen Appiah on 08-10-2024 Creatinine [Mass/Vol] 0.77 mg/dL 0.55-1.02 [facility] Comment on above: The validity of the calculated GFR & GFRAA in patients over 70 years has not been determined. Clinical correlation is essential. Serum or plasma thyroid stim ulating hormone (TSH) measurement (units/volume)Ordered By: Carleen Appiah on 08-10-2024 TSH Qn 1.760 uIU/mL 0.358-3.740 [facility] Serum or plasma urea nitroge n measurement (mass/volume)Ordered By: Carleen Appiah on 08-10-2024 Urea nitrogen [Mass/Vol] 15 mg/dL 7-18 [facility] Sodium levelOrdered By: Omkar Appiah on 08-10-2024 Sodium [Moles/Vol] 141 mmol/L 136-145 [facility] Thyroid Stim Hormone (TSH)on 08-10-2024 TSH 1.760 uIU/mL Normal 0.358-3.740 [facility] Comment on above: Order Comment: Order Date: 08/10/24 Order Info: [id number] - CMP Order Info: [id number] - LIPID Order Info: [id number] - TSH Performed By: #### L 501.9520, L100.0100, L500.4050, L506.1000, L500.4100 #### [facility] [address] [place], [place], [id number] Total proteinOrdered By: Kacey Appiah on 08-10-2024 Protein [Mass/Vol] 7.3 g/dL 6.4-8.2 [facility] Triglycerides measurementOrd ered By: Carleen Appiah on 08-10-2024 Triglyceride [Mass/Vol] 63 mg/dL <199 [facility] Comment on above: The drugs N-Acetylcy steine and Metamizole may falsely depress this assay.Serum Triglycerides Reference Interval Normal <150 mg/dL Borderline high 150 - 199 mg/dL High 200 - 499 mg/dL Very High > or = 500 mg/dL Very low density lipoprotein (VLDL) cholesterol measurementOrdered By: Carleen Appiah on 08-10-2024 Very low density lipoprotein (VLDL) cholesterol measurement 13 mg/dL 5-40 [facility] Vitamin D,25 Hydroxyon 08-10 Vitamin D 25-OH 46.1 ng/mL Normal [facility] Comment on above: Order Comment: Order Date: 08/10/24 Order Info: [id number] - VITD25 Result Comment: Nuzhat min D 25(OH) Status Range Deficiency <20 ng/mL (50nmol/L) Insufficiency 20 - 30 ng/mL (50 - 75 nmol/L) Sufficiency 30 - 100 ng/mL (75 - 250 nmol/L) Toxicity >100 ng/mL (>250 nmol/L) Performed By: #### L 501.9520, L100.0100, L500.4050, L506.1000, L500.4100 #### [facility] [address] [place], [place], [address] White blood cell (WBC) count Ordered By: Carleen Appiah on 08-10-2024 WBC (Bld) [#/Vol] 4.9 10*3/uL 4.4-11.0 [facility] Absolute lymphocyte countOrd ered By: Carleen Appiah on 03-18-2023 Lymphocytes Auto (Unsp spec) [#/Vol] 1.07 10*3/uL 0.83-4.51 [facility] Basophil percentageOrdered B y: Carleen Appiah on 03-18-2023 Basophils/100 WBC (Bld) 1.0 % 0-1 [facility] Bilirubin [Mass/Vol] 0.70 mg/dL 0.20-1.00 [facility] Comment on above: For patients on eltr ombopag therapy, use of Dimension Squires TBIL is not recommended. Chloride [Moles/Vol] 110 mmol/L 98-107 [facility] Cholesterol [Mass/Vol] 180 mg/dL <200 [facility] Comment on above: <200 mg/dL Desirable 200-240 mg/dL Borderline >240 mg/dL High Risk Eosinophils/100 WBC (Bld) 2.7 % 0-5 [facility] Glucose [Mass/Vol] 95 mg/dL 74-106 [facility] Neutrophils (Bld) [#/Vol] 1.5 10*3/uL 2.0-7.7 [facility] Neutrophils/100 WBC (Bld) 51.9 % 47-70 [facility] Potassium [Moles/Vol] 3.5 mmol/L 3.5-5.1 [facility] Protein [Mass/Vol] 7.0 g/dL 6.4-8.2 [facility] Sodium [Moles/Vol] 144 mmol/L 136-145 [facility] Triglyceride [Mass/Vol] 82 mg/dL <199 [facility] Comment on above: The drugs N-Acetylcy steine and Metamizole may falsely depress this assay.Serum Triglycerides Reference Interval Normal <150 mg/dL Borderline high 150 - 199 mg/dL High 200 - 499 mg/dL Very High > or = 500 mg/dL WBC (Bld) [#/Vol] 3.0 10*3/uL 4.4-11.0 [facility] Blood erythrocytes count (nu mber/volume)Ordered By: Carleen Appiah on 03-18-2023 RBC (Bld) [#/Vol] 4.57 10*6/uL 4.2-5.4 [facility] Blood hemoglobin measurement (mass/volume)Ordered By: Carleen Appiah on 03-18-2023 Hemoglobin (Bld) [Mass/Vol] 13.6 g/dL 12.0-15.0 [facility] Blood lymphocytes/100 leukoc ytesOrdered By: Omkarpretty Appiah on 03-18-2023 Lymphocytes/100 WBC (Bld) 36.3 % 19-41 [facility] Blood monocytes/100 leukocyt esOrdered By: Carleen Bijal on 03-18-2023 Monocytes/100 WBC (Bld) 7.8 % 0-10 [facility] Blood platelet mean volumeOr dered By: Carleen Appiah on 03-18-2023 Platelet mean volume (Bld) [Entitic vol] 8.8 fL 6.2-12.0 [facility] Determination of erythrocyte mean corpuscular volume (MCV)Ordered By: Carelen Appiah on 03-18-2023 MCV (RBC) [Entitic vol] 89.1 fL 81-99 [facility] Hematocrit Auto (Bld) [Volum e fraction]Ordered By: Carleen Bijal on 03-18-2023 Hematocrit (Bld) [Volume fraction] 40.7 % 37-47 [facility] - Chemistry and C hemistry - challengeOrdered By: [facility] on 03-18-2023 ALP [Catalytic activity/Vol] 70 U/L 45-117 [facility] ALT [Catalytic activity/Vol] 18 U/L 13-56 [facility] CO2 [Moles/Vol] 29.0 mmol/L 21.0-32.0 [facility] Globulin (S) [Mass/Vol] 3.2 g/dL 2.2-4.2 [facility] Urea nitrogen/Creatinine [Mass ratio] 19.2 mg/mg 10-20 [facility] - Hematology and Cell countsOrdered By: [facility] on 03-18-2023 Erythrocyte distribution width (RBC) [Entitic vol] 40.5 fL 35.1-43.9 [facility] Erythrocyte distribution width (RBC) [Ratio] 12.4 % 11.6-14.6 [facility] Immature granulocytes/100 WBC (Bld) 0.300 % 0.0-0.9 [facility] Comment on above: IG% - Immature Granu locytes (promyelocytes, myelocytes and metamyelocytes) > 1% indicates that a LEFT SHIFT is Present. MCH (RBC) [Entitic mass] 29.8 pg 27.0-32.0 [facility] Nucleated RBC/100 WBC (Bld) [Ratio] 0 % 0-5 [facility] MCHC Auto (RBC) [Mass/Vol]Or dered By: Carleen Appiah on 03-18-2023 MCHC (RBC) [Mass/Vol] 33.4 g/dL 32-36 [facility] No Panel InformationOrdered By: Carleen Appiah on 03-18-2023 Estimated GFR (MDRD) Amer 96 mL/min >60 [facility] Comment on above: GFR Calc Estimated GFR (MDRD) Non-Af Amer 79 mL/min >60 [facility] Comment on above: Non- GFR Calc Miscellaneous Test See comment [facility] Comment on above: TEST RESULTS LIMITSA po A1 + B + RatioApolipoprotein A-1 154 mg/dL 116-209Apolipoprotein B 77 mg/dL <90 Desirable < 90 Borderline High 90 - 99 High 100 - 130 Very High >130 ASCVD RISK THERAPEUTIC TARGET CATEGORY APO B (mg/dL) Very High Risk <80 (if extreme risk <70) High Risk <90 Moderate Risk <90Apolipo. B/A-1 Ratio 0.5 ratio 0.0-0.6 Apolipoprotein B/A-1 Ratio Male Female Avg.Risk 0.7 0.6 2X Avg.Risk 0.9 0.9 3X Avg.Risk 1.0 1.0 TESTING PERFORMED AT [facility]. ORIGINAL REPORT ON FILE IN LAB CONTAINS ADDITIONAL TEST SITE INFORMATION. Thyroid Stimulating Hormone (TSH) 1.05 uIU/mL 0.358-3.74 [facility] Vitamin D 25-Hydroxy 61.9 ng/mL [facility] Comment on above: Vitamin D 25(OH) Sta tus Range Deficiency <20 ng/mL (50nmol/L) Insufficiency 20 - 30 ng/mL (50 - 75 nmol/L) Sufficiency 30 - 100 ng/mL (75 - 250 nmol/L) Toxicity >100 ng/mL (>250 nmol/L) Platelets bldOrdered By: Kacey Appiah on 03-18-2023 Platelets (Bld) [#/Vol] 270 10*3/uL 150-450 [facility] Serum or plasma albumin magaly urement (mass/volume)Ordered By: Carleen Appiah on 03-18-2023 Albumin [Mass/Vol] 3.8 g/dL 3.2-5.0 [facility] Serum or plasma albumin/glob ulin mass ratioOrdered By: Carleen Appiah on 03-18-2023 Albumin/Globulin [Mass ratio] 1.2 {ratio} 0.9-2.4 [facility] Serum or plasma calcium magaly urement (mass/volume)Ordered By: Carleen Appiah on 03-18-2023 Calcium [Mass/Vol] 8.8 mg/dL 8.5-10.1 [facility] Serum or plasma cholesterol in HDL measurement (mass/volume)Ordered By: Carleen Appiah on 03-18-2023 Cholesterol in HDL [Mass/Vol] 65 mg/dL >40 [facility] Comment on above: The drugs N-Acetylcy steine and Metamizole may falsely depress this assay. Reference Range HDL <40 mg/dL Low HDL Cholesterol HDL >or= 60 mg/dL High HDL Cholesterol Serum or plasma cholesterol in VLDL measurement (mass/volume)Ordered By: Carleen Appiah on 03-18-2023 Cholesterol in VLDL [Mass/Vol] 16 mg/dL 5-40 [facility] Serum or plasma creatinine m easurement (mass/volume)Ordered By: Carleen Appiah on 03-18-2023 Creatinine [Mass/Vol] 0.78 mg/dL 0.55-1.02 [facility] Comment on above: The validity of the calculated GFR & GFRAA in patients over 70 years has not been determined. Clinical correlation is essential. Serum or plasma low density lipoprotein (LDL) cholesterol measurement (mass/volume)Ordered By: Carleen Appiah on 03-18-2023 Cholesterol in LDL [Mass/Vol] 99 mg/dL 0-130 [facility] Serum or plasma urea nitroge n measurement (mass/volume)Ordered By: Carleen Appiah on 03-18-2023 Urea nitrogen [Mass/Vol] 15 mg/dL 7-18 [facility] Thin prep Papanicolaou smear with manual screeningOrdered By: Carleen Appiah on 03-18-2023 Thin prep Papanicolaou smear with manual screening 15 U/L 15-37 [facility] Thin prep Papanicolaou smear with manual screening 5 5-15 [facility] DBT Breast - bilateral scree subhashgOrdered By: Tawny Villa on 07-22-2022 Interpretation and review of laboratory results Abnormal [facility]: [employer] Phone: DBT Breast - bilateral scree leatha 07-22-2022 Addendum by Tawny Villa MD on 07/30/2022 1:47 PM EST ADDENDUM #1 ADDENDUM: This is an addendum to the screening exam dated 07/04/2022. A prior exam dated 04/11/2021 and has been made available. The previously identified left breast mass is unchanged from the prior exam. Therefore, no additional evaluation of this is needed. A one year screening exam is recommended. TISSUE DENSITY: BIRADS B - There are scattered fibroglandular densities. ASSESSMENT: Category 2 Benign RECOMMENDATION: Routine screening mammogram in 1 year. Bilateral There are no other changes to the previous report. Report Dictated on Electronically Signed By: Tawny Villa Electronically Signed Date/Time: 07/30/2022 1:47 PM EST Benign b Bilat Bilat Mamm 1 Yr [facility] ditlo 7 mm left breast mass. Left breast ultrasound is recommended. Markings on images: BB's = Nipples; skin lesions [place] = Palpable Line = Scar ASSESSMENT: Category 0 Incomplete: need additional imaging evaluation RECOMMENDATION: Follow-up diagnostic breast ultrasound Left Report Dictated on Electronically Signed By: Tawny Villa Electronically Signed Date/Time: 07/22/2022 8:23 AM EST [facility] Patient Name: CAITLIN MITCHELL Exam Date/Time: 07/04/2022 08:43 Procedure: BI MAMMOGRAM SCREENING TOMOSYNTHESIS BILATERAL Ordering Provider: GAY LOREN Reason For Exam: Image views: 2D Bilateral CC and MLO views were acquired. 3D Bilateral CC and MLO views were acquired. Prior study Comparisons: There were no priors available for comparison. Tissue Density: BIRADS B - There are scattered fibroglandular densities. Images were reviewed with CAD. Findings: A 7 mm round circumscribed mass is seen within the lower, slightly outer quadrant of the left breast, middle depth. No additional suspicious masses, calcifications, or architectural distortion is seen within either breast. No priors were available at the time of this dictation. If priors are made available, an addendum will be issued. [facility] Tawny Villa MD - 07/22/2022 Patient Name: CAITLIN MITCHELL Exam Date/Time: 07/04/2022 08:43 Procedure: BI MAMMOGRAM SCREENING TOMOSYNTHESIS BILATERAL Ordering Provider: GAY LOREN Reason For Exam: Image views: 2D Bilateral CC and MLO views were acquired. 3D Bilateral CC and MLO views were acquired. Prior study Comparisons: There were no priors available for comparison. Tissue Density: BIRADS B - There are scattered fibroglandular densities. Images were reviewed with CAD. Findings: A 7 mm round circumscribed mass is seen within the lower, slightly outer quadrant of the left breast, middle depth. No additional suspicious masses, calcifications, or architectural distortion is seen within either breast. No priors were available at the time of this dictation. If priors are made available, an addendum will be issued. IMPRESSION: 7 mm left breast mass. Left breast ultrasound is recommended. Markings on images: BB's = Nipples; skin lesions [place] = Palpable Line = Scar ASSESSMENT: Category 0 Incomplete: need additional imaging evaluation RECOMMENDATION: Follow-up diagnostic breast ultrasound Left Report Dictated on Electronically Signed By: Tawny Villa Electronically Signed Date/Time: 07/22/2022 8:23 AM EST [facility] DBT Breast - bilateral scree lyndseyjennifer 07-04-2022 Radiology Study observation (narrative) [facility] alth 25-hydroxyvitamin D3 [Mass/V ol]on 06-06-2022 Interpretation and review of laboratory results Normal [facility] Therapy is based on measurement of Total 25-OHD with the following classification levels: Less than 20 ng/mL: Indicative of Vit D deficiency 20-30 ng/mL: Suggests Vit D insufficiency Optimal: Greater than or equal to 30 ng/mL Test performed by [employer] Competitive Immunoassay, measuring Total Vitamin D, not individual fractions. [facility] CBC W Auto Differential pane l (Bld)on 06-06-2022 Basophils (Bld) [#/Vol] 0.0 10*3/uL 0.0 - 0.2 10*3/uL [facility] Basophils/100 WBC (Bld) 0.8 % 0.0 - 2.0 % [facility] Eosinophils (Bld) [#/Vol] 0.1 10*3/uL 0.0 - 0.5 10*3/uL [facility] Eosinophils/100 WBC (Bld) 2.5 % 1.0 - 6.0 % [facility] Erythrocyte distribution width (RBC) [Ratio] 12.3 % 11.5 - 14.5 % [facility] Hematocrit (Bld) [Volume fraction] 39.5 % 35.0 - 47.0 % [facility] Hemoglobin (Bld) [Mass/Vol] 13.5 g/dL 11.7 - 16.0 g/dL [facility] Immature granulocytes (Bld) [#/Vol] 0.0 10*3/uL NINF - 0.0 10*3/uL [facility] Immature granulocytes/100 WBC (Bld) 0.3 % High NINF - 0.0 % [facility] Interpretation and review of laboratory results Abnormal [facility] Lymphocytes (Bld) [#/Vol] 1.4 10*3/uL 1.0 - 4.3 10*3/uL [facility] Lymphocytes/100 WBC (Bld) 36.5 % 20.0 - 40.0 % [facility] MCH (RBC) [Entitic mass] 29.8 pg 26.0 - 34.0 pg [facility] MCHC (RBC) [Mass/Vol] 34.2 % 32.0 - 36.0 % [facility] MCV (RBC) [Entitic vol] 87.2 fL 80.0 - 98.0 fL [facility] Monocytes (Bld) [#/Vol] 0.2 10*3/uL 0.0 - 0.8 10*3/uL [facility] Monocytes/100 WBC (Bld) 6.1 % 2.0 - 10.0 % [facility] Neutrophils (Bld) [#/Vol] 2.1 10*3/uL 1.8 - 7.0 10*3/uL [facility] Neutrophils/100 WBC (Bld) 53.8 % 40.0 - 80.0 % [facility] Platelet mean volume (Bld) [Entitic vol] 8.4 fL 7.4 - 12.4 fL [facility] Comment on above: MPV is a calculated measurement using platelet volume ratio Platelets (Bld) [#/Vol] 296 10*3/uL 140 - 440 10*3/uL [facility] RBC (Bld) [#/Vol] 4.53 10*6/uL 3.8 - 5.20 10*6/uL [facility] WBC (Bld) [#/Vol] 3.9 10*3/uL 3.6 - 10.7 10*3/uL [facility] Comprehensive metabolic 1998 panelOrdered By: Blessing Mart on 06-06-2022 Albumin [Mass/Vol] 4.2 g/dL 3.5 - 5.0 g/dL [facility] ALP [Catalytic activity/Vol] 78 U/L 38 - 126 U/L [facility] ALT [Catalytic activity/Vol] 10 U/L 0 - 34 U/L [facility] Anion gap [Moles/Vol] -1 mmol/L Low 3 - 13 mmol/L [facility] AST [Catalytic activity/Vol] 28 U/L 15 - 46 U/L [facility] Bilirubin [Mass/Vol] 0.9 mg/dL 0.2 - 1 .3 mg/dL [facility] Calcium [Mass/Vol] 9.0 mg/dL 8.4 - 10. 4 mg/dL [facility] Chloride [Moles/Vol] 106 mmol/L 98 - 10 7 mmol/L [facility] CO2 [Moles/Vol] 32 mmol/L High 22 - 30 mmol/L [facility] Creatinine [Mass/Vol] 0.75 mg/dL 0.52 - 1.04 mg/dL [facility] GFR/1.73 sq M.predicted MDRD (S/P/Bld) [Vol rate/Area] - PINF [facility] Comment on above: Calculation based on the Chronic Kidney Disease Epidemiology Collaboration (CKD-EPI) equation refit without adjustment for race Glucose [Mass/Vol] 98 mg/dL 70 - 100 mg/dL [facility] Interpretation and review of laboratory results Abnormal [facility] Potassium [Moles/Vol] 3.7 mmol/L 3.5 - 5.1 mmol/L [facility] Protein [Mass/Vol] 7.1 g/dL 6.3 - 8.2 g/dL [facility] Sodium [Moles/Vol] 137 mmol/L 135 - 145 mmol/L [facility] Urea nitrogen [Mass/Vol] 14 mg/dL 7 - 17 mg/dL [facility] Lipid 1996 panelon 2 Cholesterol [Mass/Vol] 189 mg/dL NINF - 200 mg/dL [facility] Cholesterol in HDL [Mass/Vol] 57 mg/dL 40 - 60 mg/dL [facility] Cholesterol in LDL [Mass/Vol] 116 mg/dL High 0 - <100 [facility] Cholesterol.total/Liane sterol in HDL [Mass ratio] 3 {ratio} [facility] Comment on above: Ref Range: < 3 Low Risk for CHD 3-6 Mod Risk for CHD > 6 High Risk for CHD Interpretation and review of laboratory results Abnormal [facility] Triglyceride [Mass/Vol] 79 mg/dL NINF - 150 mg/dL [facility] TSHon 06-06-2022 TSH Qn 1.434 m[IU]/L [facility] h TSH Qnon 06-06-2022 Interpretation and review of laboratory results Normal [facility] Vitamin D 25 hydroxyon 06-06 25-hydroxyvitamin D3 [Mass/Vol] 69 ng/mL 30 - 100 ng/mL [facility] CNOVon 02-15-2018 [facility] [place] (DERMAV) ----PAULACAITLIN GAGNON Ifeanyi ([id number]) 1960 FDate Time Provider Department02/15/18 5:00 PM SAIMA CONTRERAS DERMAV During your visit today, we recorded the following information about you:Referring Provider: SELF [[id number]]Allergies As of Date: 02/15/2018(No Known Allergies)Date Reviewed: 12/17/2009Reviewed by: Caitlin Jacobson Internet Architect - ReviewedReason for Visit:Reason For Visit History RecordedPrimary Visit Diagnosis:OPENED IN ERRORPrescriptions as of 02/15/2018 Sig: PRINIVIL 20 MG TABLET Take one(1) tablet daily. 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 TENSION HEADACHE [G44.209] More... ALLERGIC RHINITIS NOS [J30.9] BENIGN HYPERTENSION [I10] INVALID FOR* Status:Closed by SAIMA CONTRERAS MD on 02/16/18 [facility]: Miscellaneous La b Procedureon 08-01-2017 GE use only - for [employer] import when terms are not otherwise specified . Invalid Interpretation Code [facility] SLEEP LAB STUDY -Mon 017 SLEEP LAB STUDY -M NAME: PAULACAITLIN GAGNONMR: [id number]: 02/12/2017This is an overnight home sleep study.SLEEP SUMMARY: Total recording time was 455.8 minutes with the sleep efficiency withinnormal range 92.8%. Total sleep time was 422.8 minutes.RESPIRATORY SUMMARY: Apnea-hypopnea index was moderately elevated 21.7. Mean apneaduration was 28 seconds. Baseline oxygen saturation of 93.8% with minimum oxygensaturation of 64%. Oxygen saturation was below 90% for 6.9 minutes.HEART RATE SUMMARY: Mean heart rate was 52 beats per minute. No PACs, PVCs or any otherarrhythmia.INTER PRETATION:1. Moderate with severe sleep disorder breathing/obstructive sleep apnea.2. Nocturnal hypoxia secondary to sleep apnea.3. Snoring.RECOMMENDATIO NS:1. We will recommend treatment with auto CPAP, pressure limit cm waterpressure. We will use heated humidity in order to improve compliance with CPAP.2. Sleep hygiene.3. Driving precautions.4. We strongly recommend weight reduction. Goal for body mass index is less than 30.Presently body mass index is 31. DAN SONA LYNN/EDDIEL/[id number]: 02/13/2017 20:54:22 cc: Joseph Daigle, MDD: 02/13/17T: 02/23/17[facility] PT NAME: ALLAN MITCHELL#: [id number] [place] [address] ACCT: [id number]: 60[facility] ATT DR: Joseph Daigle MD [facility] Office Visit: Spine Visiton 06-30-2016 Documentation of current medications (procedure) Done Invalid Interpretation Code [email or web address] Work Phone: Office Visit: Spine Visiton 06-09-2016 Tobacco smoking status NHIS Never Invalid Interpretation Code [facility] Work Phone: Tobacco smoking status NHIS Tobacco smoking status NHIS Invalid Interpretation Code [facility] Tobacco use [facility] Never smoker Invalid Interpretation Code [facility] Work Phone: Vital Signs Date Time Vital Sign Value Performing Clinician Facility 11-05-2021 08:18-0400 Body height 167.[address] Vianca Gay Work Phone: [facility] Work Phone: 11-05-2021 08:18-0400 Body mass index (BMI) [Ratio] 30.7 kg/m2 Dr. Vianca Gay Work Phone: [facility] Work Phone: 11-05-2021 08:18-0400 Body temperature 98.8 [degF] Dr. Vianca Gay Work Phone: [facility] Work Phone: 11-05-2021 08:18-0400 Body weight 86.[address] Vianca Gay Work Phone: [facility] Work Phone: 11-05-2021 08:18-0400 Diastolic blood pressure 80 mm[Hg] Dr. Vianca Gay Work Phone: [facility] Work Phone: 11-05-2021 08:18-0400 Heart rate 77 /min Dr. Vianca Gay Work Phone: [facility] Work Phone: 11-05-2021 08:18-0400 Respiratory rate 14 /min Dr. Vianca Gay Work Phone: [facility] Work Phone: 11-05-2021 08:18-0400 SaO2% (BldA) [Mass fraction] 99 % Dr. Vianca Gay Work Phone: [facility] Work Phone: 11-05-2021 08:18-0400 Systolic blood pressure 134 mm[Hg] Dr. Vianca Gay Work Phone: [facility] Work Phone: 06-09-2016 11:03-0500 BMI (Body Mass Index) 53.35 kg/m2 Patience Booth DC [facility] Work Phone: 06-09-2016 11:03-0500 Height 142.24 cm Patience Booth DC [email or web address] Work Phone: 06-09-2016 11:03-0500 Weight 107.96 kg Patience Booth DC [email or web address] Work Phone: Encounters Encounter Date Encounter Type Care Provider Facility Start: 11-28-2024 End: 11-28-2024 ambulatory Carleen Appiah MD Work Phone: [facility] Work Phone: Start: 11-28-2024 End: 11-28-[address] [facility] Start: 11-28-2024 End: 11-28-[facility] Start: 08-10-2024 End: 08-10-[address] Carleen Appiah MD -Laboratory, [facility] Start: 08-10-2024 End: 08-10-2024 ambulatory Carleen Appiah Facility:[facility] Start: 03-18-2023 End: 03-18-2023 ambulatory [facility] Work Phone: Start: 03-18-2023 End: 03-18-2023 Patient encounter procedure [facility] Work Phone: Start: 07-04-2022 End: 07-05-2022 ambulatory VIANCA GAY [facility] Start: 07-03-2022 Transcribe Orders Vianca lala Work Phone: [facility] Scheduling Comment on above: Encounter for screen ing mammogram for malignant neoplasm of breast (Primary Dx) Start: 06-06-2022 End: 06-07-2022 ambulatory Vianca Gay Work Phone: [facility] Comment on above: Encounter for screen ing for diabetes mellitus (Primary Dx); Encounter for screening for lipoid disorders; Obstructive sleep apnea (adult) (pediatric); Essential (primary) hypertension; Vitamin D deficiency, unspecified Start: 11-07-2021 End: 11-07-[address] [facility] Start: 11-05-2021 End: 11-05-[address] Vianca Gay Work Phone: [facility] Start: 02-15-2018 Patient encounter SAIMA Vincent [facility] Start: 02-12-2017 Ambulatory Joseph Smithi ty:[facility] Procedures Date Procedure Procedure Detail Performing Clinician Start: 08-10-2024 Measurement of renal function Carleen Appiah MD Work Phone: Comment on above: GFR Calc Start: 08-10-2024 Vitamin D, 25-hydrox y measurement Carleen Appiah MD Work Phone: Comment on above: Vitamin D 25(OH) Sta tus Range Deficiency <20 ng/mL (50nmol/L) Insufficiency 20 - 30 ng/mL (50 - 75 nmol/L) Sufficiency 30 - 100 ng/mL (75 - 250 nmol/L) Toxicity >100 ng/mL (>250 nmol/L) Start: 07-04-2022 [facility]amm[facility] Work [facility]: Start: 06-06-2022 Comprehensive metabo lic panel Vianca Gay Work Phone: Start: 06-06-2022 Lipid panel [facility] Work Phone: Start: 06-06-2022 Thyrotropin [Units/v olume] in Serum or Plasma Vianca Gay Work Phone: Start: 06-06-2022 Lipid 1996 panel - S carmen or Plasma Vianca Gay Work Phone: Start: 11-07-2021 X-ray of both feet Dr. Vianca Gay Work Phone: Start: 03-09-2017 End: 03-09-2017 Chiropractic manipulation Patience B Dossi DC Work Phone: Start: 03-09-2017 End: 03-09-2017 Electric stimulation therapy Patience Romero Dossi DC Work Phone: Start: 03-09-2017 End: 03-09-2017 Mechanical traction therapy Patience Romero She i DC Work Phone: Start: 06-30-2016 End: 06-30-2016 Chiropract manj 1-2 regions Patience Romero She i DC Work Phone: Start: 06-30-2016 End: 06-30-2016 Chiropractic manipulation Patience Romero Dossi DC Work Phone: Start: 06-22-2016 End: 06-22-2016 Chiropractic manipulation Patience Romero Dossi DC Work Phone: Start: 06-22-2016 End: 06-22-2016 Chiropractic manipulation Patience Romero Dossi DC Work Phone: Start: 06-09-2016 End: 06-11-2016 Chiropractic manipulation Patience Romero Dossi DC Work Phone: Start: 06-09-2016 End: 06-11-2016 Chiropractic manipulation Patience Romero Dossi DC Work Phone: Plan of Treatment Date Care Activity Detail Author Start: 06-06-2027 Lipid panel Lipid Panel [facility] Start: 07-04-2023 Screening for malign ant neoplasm of breast Mammogram [facility] Start: 03-26-2022 Influenza vaccination Influenz a Vaccine (#1) [facility] Start: 11-05-2021 Patient referral [facility] Work Phone: Start: 05-29-2021 COVID-19 Vaccine (2 - Booster for Annie series) COVID-19 Vaccine (2 - Booster for Annie series) [facility] Start: 03-09-2017 End: 03-09-2017 Appointment [facility] Work Phone: Start: 2010 Zoster Vaccines (1 o f 2) Zoster Vaccines (1 of 2) [facility] Start: 1990 Screening for malign ant neoplasm of cervix [facility] Start: 1981 Screening for malign ant neoplasm of cervix Pap Smear [facility] Start: 12-17-1979 DTaP/Tdap/Td Vaccine s (1 - Tdap) DTaP/Tdap/Td Vaccines (1 - Tdap) [facility] Start: 1978 Hepatitis C screening Hepatitis C Sc reening [facility] Start: 1961 MMR Vaccines (1 of 1 - Standard series) MMR Vaccines (1 of 1 - Standard series) [facility] Start: 1960 Hepatitis B Vaccines (1 of 3 - 3-dose series) Hepatitis B Vaccines (1 of 3 - 3-dose series) [facility] Start: 1960 HIV screening HIV Screening [facility] Start: 1960 Screening for malign ant neoplasm of colon [facility] Patient referral [facility] Work Phone: Immunizations Immunization Date Immunization Notes Care Provider Fa [facility] 07-08-2015 influenza, injectabl e, quadrivalent, preservative free Carleen Appiah MD Work Phone: [facility] 07-08-2015 influenza, seasonal, injectable Dr. Vianca Gay Work Phone: [facility] 06-07-2014 influenza, injectabl e, quadrivalent, preservative free Carleen Appiah MD Work Phone: [facility] 06-07-2014 influenza, seasonal, injectable Dr. Vianca Gay Work Phone: [facility] Payers Date Payer Category Payer Self-pay [id number] 2024 Unknown [id number] 2021 Unknown [id number] 2021 Unknown [facility] ARE [id number] 2021-Present [address] [place] [address] Commercial [id number] 2014 Private Health Insurance [id number] Unknown [id number] Unknown [id number] Unknown [id number] Social History Date Type Detail Facility Start: 11-05-2021 End: 08-25-2022 Tobacco smoking status NHIS Unknown if ever smoked [facility] Start: 02-02-2020 None [facility] Start: 02-02-2020 Spouse/ Signif icant Other [facility] Start: 1960 Sex Assigned At Female [facility] Start: 1960 Sex Assigned At Not on file S [facility] Start: 07-21-2022 End: 07-31-2022 Exposure to SARS-CoV-2 (event) Not sure [facility] Start: 08-25-2022 Tobacco smoking status NHIS Never smoked tobacco (finding) [facility] Evaluation note Note Date & Type Note Facility Evaluation note Diagnosis Onset Date Luis's deformity of right heel acute Pain of right heel acute [facility] Work Phone: Evaluation note Note Date & Type Note Facility Evaluation note Diagnosis Encounter for screening mammogram for malignant neoplasm of breast- Primary Encounter for screening mammogram for malignant neoplasm of breast documented in this encounter [facility] Evaluation note Note Date & Type Note Facility Evaluation note No assessment information availa ble [facility] Work Phone: Evaluation note Note Date & Type Note Facility Evaluation note Diagnosis Encounter for screening for diabetes mellitus- Primary Encounter for screening for lipoid disorders Obstructive sleep apnea (adult) (pediatric) Essential (primary) hypertension Unspecified essential hypertension Vitamin D deficiency, unspecified documented in this encounter [facility] Discharge instructions Note Date & Type Note Facility Hospital Discharge instructions [facility] Work Phone: Reason for referral (narrative) Note Date & Type Note Facility Reason for referral (narrative) No reason for referral information available [facility] Work Phone: Summary Purpose Family History No Family History Records Found Relationship Condition Age at Onset Recorded Date/T alvin mother Depression Unknown Fibromyalgia Unknown father Hypertension Unknown grandfather Malignant neoplasm Unknown Advance Directives No Advanced Directives Records Found Advance Directive Response Recorded Date/ Time Living Will Yes February 01, 2020 1 1:29pm Power of Air Compressor Mechanic Yes February 01, 2020 11:29pm Advance Directive Response Recorded Date/ Time Living Will Yes August 25 3:42pm Power of Air Compressor Mechanic Yes August 25, 2022 3:42pm Chief Complaint and Reason for Visit Chief Complaint Foot pain Reason for Visit Luis's deformity of right heel Pain of right heel Additional Source Comments INFORMATION SOURCE (unrecogn ized section and content) DATE CREATED AUTHOR 01/19/2018 [facility] DATE CREATED AUTHOR AUTHOR'S ORGANIZ ATION 02/16/2018 [facility] DATE CREATED AUTHOR AUTHOR'S ORGANIZ ATION 07/22/2022 [facility] DATE CREATED AUTHOR AUTHOR'S ORGANIZ ATION 12/04/2024 [facility] Goals (unrecognized section and content) Goals may be documented in a n alternate sectionGoals may be documented in an alternate sectionGoals may be documented in an alternate section Care Teams (unrecognized sec tion and content) Secondary School Principal Relationship Specialty Start Date End Date Vianca Gay [address] [place] [id number] PCP - General Internal Medicine 06/06/22 Team Status: Active Member Role Status Dates Dr. Carlos Hernández MD Family Provider Active Dr. Vianca Gay MD Primary Care Provider Active Team Status: Inactive Member Role Status Dates Dr. Vianca Gay MD Primary Care Provider Active Carleen Appiah MD Attending Provider, Referring Provide r Active [employer] Principal Relationship Specialty Start Date End Date Vianca Gay [address] [place] [phone] PCP - General Internal Medicine 06/06/22 Team Status: Active Member Role Status Dates Dr. Carlos Hernández MD Family Provider Active Carleen Appiah MD Primary Care Provider Active Team Status: Inactive Member Role Status Dates Carleen Appiah MD Primary Care Provider Active St art: August 10, 2024 End: August 10, 2024 Carleen Appiah MD Attending Provider Active Start : August 10, 2024 End: August 10, 2024 Carleen Appiah MD Referring Provider Active Start : August 10, 2024 End: August 10, 2024 Team Status: Inactive Member Role Status Dates Carleen Appiah MD Primary Care Provider Active St art: November 28, 2024 End: November 28, 2024 Carleen Appiah MD Attending Provider Active Start : November 28, 2024 End: November 28, 2024 Carleen Appiah MD Referring Provider Active Start : November 28, 2024 End: November 28, 2024 FOR RECORDS PERTAINING TO PATIENTS WHO ARE OR HAVE BEEN ENROLLED IN A CHEMICAL DEPENDENCY/SUBSTANCEABUSE PROGRAM, SOME INFORMATION MAY BE OMITTED. This clinical summary was aggregated from multiple sources. Caution should be exercised in using it in the provision of clinical care. This summary normalizes information from multiple sources, and as a consequence, information in this document may materially change the coding, format and clinical context of patient data. In addition, data may be omitted in some cases. CLINICAL DECISIONS SHOULD BE BASED ON THE PRIMARY CLINICAL RECORDS. [facility] [employer] [facility]. provides no warranty or guarantee of the accuracy or completeness of information in this document.
== END 2025-03-02 20:39 | disposition home or self-care (01) ==
LOC: ED 20:39
PROVIDERS: Emergency Provider Emergency Medicine; PCP Family Medicine; Visit Provider Emergency Medicine
DX: M79.604 Pain in right leg (principal); M79.605 Pain in left leg; I10 Essential (primary) hypertension; Z79.899 Other long term (current) drug therapy
CPT/HCPCS: 99282

== ENCOUNTER → 2025-03-13 | Outpatient (CLI) | payer BC, SELFPAY | END | disposition home or self-care (01) | PROVIDERS: PCP Family Medicine | DX: R19.4 Change in bowel habit (principal) | CPT/HCPCS: 87506 ==

== ENCOUNTER → 2025-04-03 | Outpatient (CLI) | payer BC, SELFPAY ==
--- NOTE | 2025-04-03 07:53 | ART_ITS ---
Reason For Study Reason For Study: Anesthesia of Skin Procedure A bilateral lower extremity continuous wave Doppler with analog waveform analysis and ankle brachial indexes. Left Segmental Pressures Left brachial= 136mmHg. Left posterior tibial artery = 199mmHg. Left dorsalis pedis artery = 149mmHg. Left digit = 144 mmHg. The left posterior tibial artery waveforms are triphasic. The left dorsalis pedis waveforms are triphasic. Right Segmental Pressures Right brachial= 134mmHg. Right posterior tibial artery = 182mmHg. Right dorsalis pedis artery = 162mmHg. Right digit = 150 mmHg. The right posterior tibial artery waveforms are triphasic. The right dorsalis pedis waveforms are biphasic. Indices The right ankle brachial index by the posterior tibial artery is 1.34. The right ankle brachial index by the dorsalis pedis is 1.19. The right digital-brachial index is 1.10. The left ankle brachial index by the posterior tibial artery is 1.46. The left ankle brachial index by the dorsalis pedis is 1.10. The left digital-brachial index is 1.06. VL/Ankle Brachial Index Interpretation Summary Triphasic and biphasic Doppler waveforms are noted at ankle level on the right. Triphasic Doppler waveforms are noted at ankle level on the left. Pulse-volume recordings appear satisfactory at ankle a nd digital levels bilaterally. The resting right ankle-brachial index is normal. The resting left ankle-brachial i ndex is supra-normal. Digital-brachial indices are normal bilaterally. There is evidence of arterial calcification at ankle level on the left. There i s no evidence of significant arterial occlusive disease in the lower extremities bilaterally. Ordering Physician: Sebastian Robins Referring Physician: Carleen Appiah Performed By: Shimon Gómez RVT
== END | disposition home or self-care (01) ==
PROVIDERS: PCP Family Medicine
DX: R20.0 Anesthesia of skin (principal)
CPT/HCPCS: 93922

== ENCOUNTER → 2025-05-08 | Outpatient (CLI) | payer BC, SELFPAY ==
[2025-05-08 13:14] LABS: Cholesterol 175 mg/dL (<=200); Low Density Lipoprotein Calc. 108 mg/dL; Triglycerides 83 mg/dL; Very Low Density Lipoprotein 17 mg/dL (5-40); cholesterol:hdl ratio screen 3.44
== END | disposition home or self-care (01) ==
LOC: MTLAB 09:08
PROVIDERS: PCP Family Medicine; Referring Provider Family Medicine; Visit Provider Family Medicine
DX: I10 Essential (primary) hypertension (principal); R53.83 Other fatigue
CPT/HCPCS: 36415; 80061; 86617

== ENCOUNTER → 2025-07-24 | Outpatient (CLI) | payer BC, SELFPAY ==
--- NOTE | 2025-07-24 16:45 | CT_ITS ---
PROCEDURE: CHEST WITHOUT CONTRAST 07/24/2025 REASON FOR EXAM: LUNG NODULES. Lesions seen on calcium scoring at outside facility. TECHNIQUE: Chest CT without contrast. Coronal and Sagittal reconstruction series were provided. One or more dose reduction techniques were used (e.g., Automated exposure control, adjustment of the mA and/or kV according to patient size, use of iterative reconstruction technique RADIATION DOSE SUMMARY: CTDlvol: 10.69 mGy DLP: 400.9 mGycm COMPARISON: None. FINDINGS: LUNGS: No pulmonary mass. Minimal ground-glass opacities in the left upper lobe. Scattered areas of atelectasis/scarring in all lobes bilaterally. Adjacent to the atelectasis/scarring in the right middle lobe, there is a nodular opacity measuring 1.1 x 1.4 x 1.0 cm. PLEURAL SPACES: No pleural effusion. No pneumothorax. HEART: No cardiomegaly. No significant pericardial effusion. Coronary artery calcification (CAC) is present. MEDIASTINUM/HILUM: No significant lymphadenopathy. Multiple small mediastinal lymph nodes. AORTA: No aneurysm. ESOPHAGUS: Unremarkable. CHEST WALL: The chest wall is unremarkable. BONES: No acute osseous abnormality. Flowing anterior vertebral ossifications, likely diffuse idiopathic skeletal hyperostosis (DISH). UPPER ABDOMEN: Small hiatal hernia. Prior gastric surgery. Ill-defined 1.2 cm hypoechoic region in the posteroinferior spleen. Few small hypodense liver lesions, the largest is 1.2 cm, possibly cysts. CT/Chest without Contrast IMPRESSION: 1. Right middle lobe nodular opacity, likely related to atelectasis/scarring w ith neoplasm not excluded. Follow-up imaging in 3 months is suggested to assess stability. 2. Minimal ground-glass left upper lobe opacities, possibly infectious or pos tinflammatory in etiology 3. Coronary artery calcification (CAC) is present Reading Location: [id number]
== END | disposition home or self-care (01) ==
LOC: CT 16:43
PROVIDERS: PCP Family Medicine; Referring Provider Family Medicine; Visit Provider Family Medicine
DX: R91.8 Other nonspecific abnormal finding of lung field (principal)
CPT/HCPCS: 71250